=== PATIENT | female | born 1930 | race Asian ===

== ENCOUNTER 2017-11-22 20:59 | Inpatient (IN) | payer MEDICARE, OTHER ==
[~2017-11-22] VITALS: Ht 144.8 cm; Wt 49.9 kg
[~2017-11-22 20:59] MED LIST: ALLOPURINOL100 M1 ORAL; AMLODIPINE BESY10 MG ORAL; ATENOLOL50 MG ORAL; LIPITOR10 MG ORAL; RENVELA800 MG ORAL
[2017-11-22 21:12] VITALS: BP 151/70
[2017-11-22] MEDS ORDERED: Albuterol ud Inhalation HHN ONE (21:30)
[2017-11-22] MEDS ORDERED: Ipratropium 0.02% Inh Soln 2.5ml UD HHN ONE (21:30)
[2017-11-22 21:47] LABS: BASOPHILS % (AUTO) 2.9 % (0.0-2.0); HEMATOCRIT 37.7 % (37.0-47.0); HEMOGLOBIN 11.5 G/DL (12.0-16.0); LYMPHOCYTES % (AUTO) 25.4 % (20.0-45.0); MEAN CORPUSCULAR VOLUME 100 FL (80-99); MONOCYTES % (AUTO) 10.2 % (1.0-10.0); NEUTROPHILS % (AUTO) 60.6 % (45.0-75.0); PLATELET COUNT 279 K/UL (150-450); RED BLOOD COUNT 3.78 M/UL (4.20-5.40); RED CELL DISTRIBUTION WIDTH 13.6 % (11.6-14.8); WHITE BLOOD COUNT 16.1 K/UL (4.8-10.8)
[2017-11-22 21:57] LABS: ANION GAP 14 mmol/L (5-15); BLOOD UREA NITROGEN 72 mg/dL (7-18); CALCIUM 9.4 MG/DL (8.5-10.1); CARBON DIOXIDE 20 MMOL/L (21-32); CHLORIDE 101 MMOL/L (98-107); CREATININE 7.2 MG/DL (0.55-1.30); POTASSIUM 5.4 MMOL/L (3.5-5.1); SODIUM 135 MMOL/L (136-145)
[2017-11-22 22:26] LABS: ALANINE AMINOTRANSFERASE 12 U/L (12-78); ALBUMIN 3.6 G/DL (3.4-5.0); ALBUMIN/GLOBULIN RATIO 0.9 (1.0-2.7); ALKALINE PHOSPHATASE 84 U/L (46-116); ASPARTATE AMINO TRANSFERASE 20 U/L (15-37); BILIRUBIN,TOTAL 0.5 MG/DL (0.2-1.0); CKMB 1.8 NG/ML (0.0-3.6); CREATINE KINASE 36 U/L (26-308)
[2017-11-22] MEDS ORDERED: Enoxaparin 60mg Inj SUBQ ONE (22:30)
[2017-11-22] MEDS: Aspirin Baby 81mg ORAL ONE (22:30)
[2017-11-22 22:36] LABS: APPEARANCE,URINE CLEAR; BILIRUBIN, URINE NEGATIVE (NEGATIVE); COLOR,URINE PALE YELLOW; GLUCOSE, URINE (UA) 2+ (NEGATIVE); KETONES,URINE NEGATIVE (NEGATIVE); LEUKOCYTE ESTERASE ,URINE NEGATIVE (NEGATIVE); NITRITE,URINE NEGATIVE (NEGATIVE); PH,URINE 7 (4.5-8.0); PROTEIN,URINE 3+ (NEGATIVE); UROBILINOGEN,URINE NORMAL MG/DL (0.0-1.0)
--- NOTE | 2017-11-22 22:48 | Emergency Room Report ---
History of Present Illness General Chief Complaint: Dyspnea/Respdistress Source: Patient, Family Member Present Illness HPI This is an 87-year-old [place] female with a history of CAD status post pacemaker. She also has end-stage renal disease on dialysis. Her dialysis days are Tuesday, Tuesday and Tuesday. She had early dialysis on Tuesday because Tuesday was New Year's Day. Patient presents with chief complaint of shortness of breath. Onset last night. No fever or chills. Hard time breathing. Unable to lay flat. Has chest pressure and dyspnea on exertion. Her son brought her here by car. Allergies: Coded Allergies: JUDAH INHIBITORS (Verified Allergy, Mild, 10/06/10) Patient History Past Medical History: see triage record, old chart reviewed, DM, HTN, CAD, renal disease, dialysis Past Surgical History: pacemaker, other Pertinent Family History: none Social History: Denies: smoking Now: No Immunizations: other Reviewed Nursing Documentation: PMH: Agreed, PSxH: Agreed Nursing Documentation-PMH Hx Cardiac Problems: Yes Hx Hypertension: Yes Hx Pacemaker: Yes - LRFT Hx COPD: Yes Hx Diabetes: Yes - Tue,Tue,Tue. Dyalisis Hx Cancer: No Hx Gastrointestinal Problems: Yes Hx Dialysis: Yes Hx Neurological Problems: No Review of Systems Eye: Denies: eye pain, blurred vision ENT: Denies: ear pain, nose congestion, throat swelling Respiratory: Reports: cough, shortness of breath, PATTON Cardiovascular: Denies: chest pain, palpitations Gastrointestinal: Denies: abdominal pain, diarrhea, nausea, vomiting Musculoskeletal: Denies: back pain, joint pain Skin: Denies: rash Neurological: Denies: headache, numbness Endocrine: Denies: increased thirst, increased urine Hematologic/Lymphatic: Denies: easy bruising All Other Systems: negative except mentioned in HPI Physical Exam Vital Signs Date Time Temp Pulse Resp B/P (MAP) Pulse Ox O2 Delivery O2 Flow Rate FiO2 11/22/17 21:07 97.2 84 20 151/70 64 Room Air 11/22/17 21:40 100 vitals with hypoxia. Pulse ox is 84% on room air Sp02 EP Interpretation: reviewed, normal General Appearance: alert, moderate distress, thin, Postictal Head: normocephalic, atraumatic Eyes: bilateral eye PERRL, bilateral eye EOMI ENT: hearing grossly normal, normal pharynx Neck: full range of motion, supple, no meningismus, other - JVD Respiratory: chest non-tender, respiratory distress, decreased breath sounds, accessory muscle use, rales Cardiovascular #1: regular rate, rhythm, no murmur Gastrointestinal: normal bowel sounds, non tender, no mass, no organomegaly, no bruit, non-distended Musculoskeletal: back normal, normal range of motion Neurologic: alert Psychiatric: mood/affect normal Skin: warm/dry Procedures Critical Care Time Critical Care Time Critical care is mandated in this patient who presented with respiratory distress from pulmonary edema. Patient require my urgent intervention to attenuate the risks of metabolic collapse which may lead to cardiovascular collapse and . Critical care time is 35 minutes excluding any reportable procedure. Critical care time included evaluation, multiple reevaluation, looking at old charts, interpreting laboratory and diagnostic data, discussing case with patient and family and consultants, and charting. Medical Decision Making Diagnostic Impression: Primary Impression: Acute respiratory failure with hypoxia Additional Impressions: NSTEMI (non-ST elevated myocardial infarction) Pulmonary edema Qualified Codes: J81.0 - Acute pulmonary edema Hyperkalemia Anemia Qualified Codes: D64.9 - Anemia, unspecified Hyperglycemia due to type 2 diabetes mellitus Qualified Codes: E11.65 - Type 2 diabetes mellitus with hyperglycemia ER Course Patient presents with rest or distress secondary to only edema. Patient is on BiPAP and given Lasix. She is much more comfortable respiratory sargent. She does have an NSTEMI. Aspirin was not given because of her allergy. Lovenox given. Elevated troponin may be secondary to demand ischemia. No evidence of pneumonia, PE, dissection to name a few. We'll admit. Her son said that she is taking aspirin at home. Will give her a dose of aspirin. I discussed case with Dr. Chand who will admit. Asked me to contact Dr. Duron. Laboratory Tests Test 11/22/17 21:35 11/22/17 21:43 White Blood Count 16.1 K/UL (4.8-10.8) H Red Blood Count 3.78 M/UL (4.20-5.40) L Hemoglobin 11.5 G/DL (12.0-16.0) L Hematocrit 37.7 % (37.0-47.0) Mean Corpuscular Volume 100 FL (80-99) H Mean Corpuscular Hemoglobin 30.5 PG (27.0-31.0) Mean Corpuscular Hemoglobin Concent 30.5 G/DL (32.0-36.0) L Red Cell Distribution Width 13.6 % (11.6-14.8) Platelet Count 279 K/UL (150-450) Mean Platelet Volume 5.9 FL (6.5-10.1) L Neutrophils (%) (Auto) 60.6 % (45.0-75.0) Lymphocytes (%) (Auto) 25.4 % (20.0-45.0) Monocytes (%) (Auto) 10.2 % (1.0-10.0) H Eosinophils (%) (Auto) 1.0 % (0.0-3.0) Basophils (%) (Auto) 2.9 % (0.0-2.0) H Prothrombin Time 9.8 SEC (9.30-11.50) Prothromb Time International Ratio 1.0 (0.9-1.1) Activated Partial Thromboplast Time 25 SEC (23-33) Sodium Level 135 MMOL/L (136-145) L Potassium Level 5.4 MMOL/L (3.5-5.1) H Chloride Level 101 MMOL/L (98-107) Carbon Dioxide Level 20 MMOL/L (21-32) L Anion Gap 14 mmol/L (5-15) Blood Urea Nitrogen 72 mg/dL (7-18) H Creatinine 7.2 MG/DL (0.55-1.30) H Estimat Glomerular Filtration Rate mL/min (>60) Glucose Level 246 MG/DL (74-106) H Calcium Level 9.4 MG/DL (8.5-10.1) Total Bilirubin 0.5 MG/DL (0.2-1.0) Aspartate Amino Transf (AST/SGOT) 20 U/L (15-37) Alanine Aminotransferase (ALT/SGPT) 12 U/L (12-78) Alkaline Phosphatase 84 U/L (46-116) Total Creatine Kinase 36 U/L (26-308) Creatine Kinase MB 1.8 NG/ML (0.0-3.6) Creatine Kinase MB Relative Index 5.0 Troponin I 1.005 ng/mL (0.000-0.056) Pro-B-Type Natriuretic Peptide 65098 pg/mL (0-125) H Total Protein 7.6 G/DL (6.4-8.2) Albumin 3.6 G/DL (3.4-5.0) Globulin 4.0 g/dL Albumin/Globulin Ratio 0.9 (1.0-2.7) L Urine Color Pending Urine Appearance Pending Urine pH Pending Urine Specific [place] Pending Urine Protein Pending Urine Glucose (UA) Pending Urine Ketones Pending Urine Occult Blood Pending Urine Nitrite Pending Urine Bilirubin Pending Urine Urobilinogen Pending Urine Leukocyte Esterase Pending Lab Results Impression labs with elevated BNP and troponin. EKG Diagnostic Results Rate: normal Rhythm: NSR ST Segments: other - paced. ST depression laterally Rhythm Strip Diag. Results Rhythm Strip Time: 22:47 EP Interpretation: yes Rate: 60 Rhythm: NSR, no PVC's, no ectopy Chest X-Ray Diagnostic Results Chest X-Ray Diagnostic Results : Chest X-Ray Ordered: Yes # of Views/Limited/Complete: 1 View Indication: Shortness of Breath EP Interpretation: Yes Interpretation: no consolidation, no pneumothorax, other - CM with pulm edema Impression: Other - Pulm edema Electronically Signed by: Ronny Lyn MD Last Vital Signs Date Time Temp Pulse Resp B/P (MAP) Pulse Ox O2 Delivery O2 Flow Rate FiO2 11/22/17 21:56 60 19 100 Bi-pap 100 11/22/17 21:12 97.2 151/70 Status: improved Disposition: ADMITTED INPATIENT Condition: Critical Referrals: TISH MOREAU M.D. (REFERMD) (PCP) RONNY LYN M.D. Nov 22, 2017 22:48
[2017-11-22 23:12] VITALS: BP 130/74
[2017-11-23] VITALS (13 sets, daily range): BP systolic 114–150; BP diastolic 47–65
[2017-11-23] MEDS: Aspirin Baby 81mg ORAL ONE (01:13)
[2017-11-23] MEDS ORDERED: SIMVASTATIN5 MG ORAL (01:25)
[2017-11-23] MEDS ORDERED: METOPROLOL TA37.5 MG PO (01:25)
[2017-11-23] MEDS ORDERED: ASPIRIN81 MG ORAL (01:25)
--- NOTE | 2017-11-23 07:41 | History & Physical ---
History and Physical History & Physicial REASON FOR ADMISSION: SOB HISTORY OF PRESENT ILLNESS: The patient is an 87-year-old female, presented after having some increased SOB x 1 day. She had no chest pain, nausea, vomiting, or diarrhea. She had dialysis 11/20/17. She is a dialysis patient on MWF. She has had no fever or recent ill contacts. She was evaluated and troponin was high. She improved on BiPAP. Aspirin and Lovenox were given. PAST MEDICAL HISTORY: Renal failure, on dialysis with Dr. Frye, hypercholesterolemia, hypertension, and diabetes, CAD, pacer. PAST SURGICAL HISTORY: Includes dialysis access including AV fistula and vascular stent in the right innominate vein, pacer. MEDICATIONS: Pre-Hospital Medications have been reviewed and reconciled. SOCIAL HISTORY: Negative for tobacco, alcohol, or drugs. FAMILY HISTORY: Noncontributory. PHYSICAL EXAMINATION: GENERAL: She is alert and she is oriented. VITAL SIGNS: She is afebrile, pulse is 60, blood pressure 130/52, and O2 saturation is 100% on BiPAP at 60% O2. RA sat was <70%. HEENT: Oropharynx is moist. Nasal mucosa moist. NECK: Supple. No lymphadenopathy. LUNGS: Decreased at the bases. Few rales. HEART: Regular rate and rhythm without murmur. ABDOMEN: Soft, obese, and nontender. EXTREMITIES: No edema. LABORATORY AND DIAGNOSTIC DATA: reviewed ASSESSMENT AND PLAN: AMI,renal failure on dialysis, diabetes, hypertension, and hypercholesterolemia. PLAN: admit cardiology, renal called HD BiPAP RIVER CAICEDO Nov 23, 2017 07:41
[2017-11-23] MEDS ORDERED: Aspirin Baby 81mg ORAL SCH (09:00)
[2017-11-23] MEDS: Allopurinol 100mg Tab ORAL SCH (10:39)
--- NOTE | 2017-11-23 12:07 | Diagnostic Imaging Report ---
Indication: Shortness of breath Technique: One view of the chest Comparison: 08/12/2016 Findings: Infiltrates versus edema are seen in the right middle lower lung, retrocardiac region. There are probably small bilateral pleural effusions left chest pacemaker is again. The heart size is upper limits of normal. The aorta is tortuous and calcified. Right innominate venous stent is again demonstrated Impression: Right mid and lower lung and left retrocardiac infiltrates versus edema Suspect small bilateral pleural effusions Other findings as noted
--- NOTE | 2017-11-23 17:54 | Consultation ---
Consult Note Consult Note asked to evaluate at the request of Dr Chand for dialysis management Dyspnea/Respdistress This is an 87-year-old [place] female with a history of CAD status post pacemaker. She also has end-stage renal disease on dialysis. Her dialysis days are Tuesday, Tuesday and Tuesday. She had early dialysis on Tuesday because Tuesday was New Year's Day. Patient presents with chief complaint of shortness of breath. Onset last night. No fever or chills. Hard time breathing. Unable to lay flat. Has chest pressure and dyspnea on exertion. Her son brought her here by car. Coded Allergies: JUDAH INHIBITORS (Verified Allergy, Mild, 10/06/10) Past Medical History: see triage record, old chart reviewed, DM, HTN, CAD, renal disease, dialysis Past Surgical History: pacemaker, other Hx Cardiac Problems: Yes Hx Hypertension: Yes Hx Pacemaker: Yes - LRFT Hx COPD: Yes Hx Diabetes: Yes - Tue,Tue,Tue. Dyalisis Hx Gastrointestinal Problems: Yes Hx Dialysis: Yes seen in ER in room 3 on BIPAP examined data reviewed Assessment/Plan Respiratory distress likely volume over load ? underlying pneumonia ESRD presents with CHF and high K Elevated Troponin I Anemia Other : s/p L2 compression fracture- left-sided, left leg lower extremity weakness, ESRD on Dialysis, PACER diabetes, hypertension, hypercholesterolemia. Plan; HD patricia ordered with UF pulmonary support optimize cardiac status antibiotics ALBER CHASE Nov 23, 2017 17:54
[2017-11-23] MEDS: Metoprolol Tartrate 12.5mg TAB ORAL SCH (20:49)
[2017-11-24] VITALS (8 sets, daily range): BP systolic 89–140; BP diastolic 40–56
[2017-11-24 06:28] LABS: BASOPHILS % (AUTO) 2.4 % (0.0-2.0); EOSINOPHILS % (AUTO) 1.7 % (0.0-3.0); HEMATOCRIT 31.9 % (37.0-47.0); HEMOGLOBIN 10.7 G/DL (12.0-16.0); LYMPHOCYTES % (AUTO) 15.3 % (20.0-45.0); MEAN CORPUSCULAR VOLUME 98 FL (80-99); NEUTROPHILS % (AUTO) 64.6 % (45.0-75.0); PLATELET COUNT 269 K/UL (150-450); RED BLOOD COUNT 3.26 M/UL (4.20-5.40); RED CELL DISTRIBUTION WIDTH 13.1 % (11.6-14.8); WHITE BLOOD COUNT 7.8 K/UL (4.8-10.8)
[2017-11-24 06:47] LABS: CREATINE KINASE 36 U/L (26-308); GAMMA GLUTAMYL TRANSPEPTIDASE 8 U/L (5-85); PHOSPHORUS 6.2 MG/DL (2.5-4.9)
[2017-11-24 06:57] LABS: ALANINE AMINOTRANSFERASE 9 U/L (12-78); ALBUMIN/GLOBULIN RATIO 0.8 (1.0-2.7); ALKALINE PHOSPHATASE 63 U/L (46-116); ANION GAP 11 mmol/L (5-15); ASPARTATE AMINO TRANSFERASE 18 U/L (15-37); BILIRUBIN,TOTAL 0.5 MG/DL (0.2-1.0); BLOOD UREA NITROGEN 93 mg/dL (7-18); CALCIUM 9.1 MG/DL (8.5-10.1); CARBON DIOXIDE 23 MMOL/L (21-32); CHLORIDE 101 MMOL/L (98-107); CHOLESTEROL 122 MG/DL (< 200); CREATININE 9.1 MG/DL (0.55-1.30); FERRITIN 663 NG/ML (8-388); HDL CHOLESTEROL 38 MG/DL (40-60); SODIUM 136 MMOL/L (136-145); TRIGLYCERIDES 132 MG/DL (30-150)
[2017-11-24 07:06] LABS: POTASSIUM 6.3 MMOL/L (3.5-5.1)
[2017-11-24 07:17] LABS: % IRON SATURATION 10 % (15-50); IRON 19 ug/dL (50-175); TOTAL IRON BINDING CAPACITY 200 ug/dL (250-450)
[2017-11-24] MEDS: Allopurinol 100mg Tab ORAL SCH (09:43)
[2017-11-24] MEDS: Metoprolol Tartrate 12.5mg TAB ORAL SCH ×2 (09:44→20:32)
--- NOTE | 2017-11-24 09:45 | Consultation ---
DATE OF CONSULTATION: 11/23/2017 CARDIOLOGY CONSULTATION CONSULTING PHYSICIAN: Heraclio Duron M.D. REQUESTING PHYSICIAN: Moy Chand M.D. REASON FOR CONSULTATION: Acute myocardial infarction. HISTORY OF PRESENT ILLNESS: This is an 87-year-old female, who is with end-stage renal disease, presented to the emergency room with one day of progressive shortness of breath, but no associated chest pain, nausea, vomiting, or cough. Her last dialysis session was two days ago, that was on 11/20/2017 for her usual schedule. The patient was seen in the emergency room and started on BiPAP support. She was started on anti-platelet therapy. Concern was raised over an elevated troponin level and I have been asked to assist with further care. PAST MEDICAL HISTORY: Hypertensive heart disease, hyperlipidemia, type 2 diabetes mellitus, coronary artery disease, permanent pacemaker, end-stage renal disease, and right innominate vein vascular stent. MEDICATIONS: Prior to admission, reviewed and reconciled. ALLERGIES: Include angiotensin-converting enzyme inhibitor. SOCIAL HISTORY: Negative for smoking, alcohol, or substance abuse. REVIEW OF SYSTEMS: Cannot be reliably obtained from the patient at this time due to her significant shortness of breath and due to her BiPAP mask. PHYSICAL EXAMINATION: GENERAL: Awake and alert. VITAL SIGNS: Blood pressure 130/50, pulse 60, respirations 28, and afebrile. HEENT: Conjunctivae are pink. Oropharynx clear. NECK: Supple with accessory muscle use. LUNGS: With diminished breath sounds and bilateral rales. CARDIAC: Regular rhythm and rate. Normal S1, S2. There is a fourth heart sound. No murmur. Pacemaker pocket site clean and dry. EXTREMITIES: With no edema. Palpable bruit over AV fistula. DIAGNOSTIC DATA: The chest x-ray reveals right mid and lower lobe and left retrocardiac infiltrates, small pleural effusions, pulmonary venous congestion. EKG revealed AV paced rhythm. LABORATORY DATA: White count 16 and hemoglobin 11. Troponin one is 1, troponin two is 3, and troponin three is 4.1. BUN 73, creatinine 7.2, and potassium 5.4. Pro-natriuretic peptide 26,500. IMPRESSION: 1. Condition critical. 2. Prognosis guarded. 3. Acute respiratory distress with hypoxia. 4. Community-acquired pneumonia. 5. Acute myocardial infarction. 6. Acute on chronic diastolic congestive heart failure. 7. Anemia of chronic kidney disease. 8. Hyperkalemia. 9. Type 2 diabetes mellitus with complications. 10. Permanent pacemaker. PLAN: 1. BiPAP support. 2. Cardiac monitoring. 3. Serial troponins. 4. Hemodialysis with ultrafiltration for volume management. 5. Antimicrobials. 6. Respiratory hygiene. 7. Advance anti-failure regimen. 8. Continue anti-platelet therapy with aspirin and statin drugs for lipid management. 9. Maintain beta-blockade. Heraclio Duron M.D. DR: DUNG JOB#: [id number] CC:
--- NOTE | 2017-11-24 12:46 | Nephrology Progress Note ---
Assessment/Plan Problem List: (1) Acute respiratory failure with hypoxia (2) Renal failure Assessment: on HD Assessment Respiratory distress likely volume over load ? underlying pneumonia ESRD presents with CHF and high K Elevated Troponin I Anemia Other : s/p L2 compression fracture- left-sided, left leg lower extremity weakness, ESRD on Dialysis, PACER diabetes, hypertension, hypercholesterolemia. Plan Plan; HD patricia ordered with UF - ORDERED 11/23/17 8.30 AM, WAS NOT DONE PATIENT TRANSFERED TO [facility] 11 PM - DIALYSIS IS BEING DONE NOW ! pulmonary support optimize cardiac status antibiotics Per orders Subjective ROS Limited/Unobtainable: No Constitutional: Reports: other - SOB on BIPAP Objective Objective Last 24 Hour Vital Signs Date Time Temp Pulse Resp B/P (MAP) Pulse Ox O2 Delivery O2 Flow Rate FiO2 11/24/17 12:00 3.0 11/24/17 09:44 134/56 11/24/17 09:44 60 134/56 11/24/17 09:43 60 134/56 11/24/17 08:00 3.0 11/24/17 08:00 60 11/24/17 08:00 97.0 60 18 134/56 92 Nasal Cannula 4.0 11/24/17 07:26 60 18 92 11/24/17 05:14 68 16 95 Facial 60 11/24/17 04:00 60 11/24/17 04:00 97.6 60 22 128/51 97 Bi-pap 60 11/24/17 04:00 60 11/24/17 02:41 62 21 96 Facial 60 11/24/17 00:33 66 20 96 Facial 60 11/24/17 00:00 60 11/24/17 00:00 97.2 60 22 118/54 97 Bi-pap 60 11/24/17 00:00 60 11/23/17 22:56 73 16 95 Facial 60 11/23/17 21:04 69 23 96 Facial 60 11/23/17 21:00 60 11/23/17 20:50 137/58 11/23/17 20:49 68 137/58 11/23/17 20:00 60 11/23/17 20:00 3.0 11/23/17 20:00 97.2 60 22 127/51 90 Nasal Cannula 3.0 11/23/17 18:35 68 18 93 11/23/17 17:08 63 22 97 Facial 60 11/23/17 16:37 60 11/23/17 16:30 60 11/23/17 16:15 97.0 60 22 137/58 100 Bi-pap 60 11/23/17 15:48 60 19 120/84 100 Room Air 11/23/17 14:45 60 24 99 Facial 60 11/23/17 14:00 98.2 60 16 131/50 99 Bi-pap 60 11/23/17 13:00 98.4 60 17 135/54 98 60 Intake and Output 11/23/17 11/24/17 19:00 07:00 Intake Total 120 ml 100 ml Output Total 100 ml 200 ml Balance 20 ml -100 ml Intake Oral 120 ml 100 ml Output Urine Total 100 ml 200 ml Laboratory Tests 11/23/17 13:30: Troponin I 4.099H 11/24/17 04:00: Troponin I 4.114H, White Blood Count 7.8#, Red Blood Count 3.26L, Hemoglobin 10.7L, Hematocrit 31.9L, Mean Corpuscular Volume 98, Mean Corpuscular Hemoglobin 32.7H, Mean Corpuscular Hemoglobin Concent 33.4, Red Cell Distribution Width 13.1, Platelet Count 269, Mean Platelet Volume 6.2L, Neutrophils (%) (Auto) 64.6, Lymphocytes (%) (Auto) 15.3L, Monocytes (%) (Auto) 16.0H, Eosinophils (%) (Auto) 1.7, Basophils (%) (Auto) 2.4H, Sodium Level 136, Potassium Level 6.3*H, Chloride Level 101, Carbon Dioxide Level 23, Anion Gap 11 , Blood Urea Nitrogen 93H, Creatinine 9.1H, Estimat Glomerular Filtration Rate , Glucose Level 86#, Hemoglobin A1c 5.8, Uric Acid 5.0, Calcium Level 9.1, Phosphorus Level 6.2H, Magnesium Level 2.5H, Iron Level 19L, Total Iron Binding Capacity 200L, Percent Iron Saturation 10L, Unsaturated Iron Binding 181, Ferritin 663H, Total Bilirubin 0.5, Gamma Glutamyl Transpeptidase 8, Aspartate Amino Transf (AST/SGOT) 18, Alanine Aminotransferase (ALT/SGPT) 9L, Alkaline Phosphatase 63, Total Creatine Kinase 36, C-Reactive Protein, Quantitative 4.8H , Pro-B-Type Natriuretic Peptide > 33045H, Total Protein 6.7, Albumin 3.0L, Globulin 3.7, Albumin/Globulin Ratio 0.8L, Triglycerides Level 132, Cholesterol Level 122, LDL Cholesterol 71, HDL Cholesterol 38L, Cholesterol/HDL Ratio 3.2L, Vitamin B12 Level 384, Folate 16.8, Thyroid Stimulating Hormone (TSH) 1.341 Height (Feet): 4 Height (Inches): 9.00 Weight (Pounds): 110 General Appearance: mild distress Cardiovascular: normal rate Respiratory/Chest: decreased breath sounds, rhonchi - bilaterally Abdomen: distended ALBER CHASE Nov 24, 2017 12:46
--- NOTE | 2017-11-24 20:17 | Pulmonology Progress Note ---
Assessment/Plan Assessment/Plan AMI renal failure on dialysis diabetes, hypertension hypercholesterolemia looks MUCH better after HD off BiPAP not SOB wants to go home K high repeat testing tomorrow early dc when ok with consultants Subjective Constitutional: Reports: no symptoms Allergies: Coded Allergies: JUDAH INHIBITORS (Verified Allergy, Mild, 10/06/10) Objective Last 24 Hour Vital Signs Date Time Temp Pulse Resp B/P (MAP) Pulse Ox O2 Delivery O2 Flow Rate FiO2 11/24/17 17:44 138/53 11/24/17 17:44 61 138/53 11/24/17 16:00 4.0 11/24/17 16:00 61 11/24/17 16:00 97.7 61 18 138/53 Nasal Cannula 4.0 11/24/17 14:27 Nasal Cannula 5.0 60 11/24/17 14:20 Nasal Cannula 5.0 11/24/17 14:20 97.7 60 20 140/40 Nasal Cannula 5.0 11/24/17 12:00 3.0 11/24/17 12:00 97.9 60 18 89/42 Nasal Cannula 5.0 11/24/17 12:00 60 11/24/17 11:00 Nasal Cannula 5.0 11/24/17 11:00 97.5 60 20 123/54 Nasal Cannula 5.0 11/24/17 09:44 134/56 11/24/17 09:44 60 134/56 11/24/17 09:43 60 134/56 11/24/17 08:00 3.0 11/24/17 08:00 60 11/24/17 08:00 97.0 60 18 134/56 92 Nasal Cannula 4.0 11/24/17 07:26 60 18 92 11/24/17 05:14 68 16 95 Facial 60 11/24/17 04:00 60 11/24/17 04:00 97.6 60 22 128/51 97 Bi-pap 60 11/24/17 04:00 60 11/24/17 02:41 62 21 96 Facial 60 11/24/17 00:33 66 20 96 Facial 60 11/24/17 00:00 60 11/24/17 00:00 97.2 60 22 118/54 97 Bi-pap 60 11/24/17 00:00 60 11/23/17 22:56 73 16 95 Facial 60 11/23/17 21:04 69 23 96 Facial 60 11/23/17 21:00 60 11/23/17 20:50 137/58 11/23/17 20:49 68 137/58 Intake and Output 11/23/17 11/24/17 19:00 07:00 Intake Total 120 ml 100 ml Output Total 100 ml 200 ml Balance 20 ml -100 ml Intake Oral 120 ml 100 ml Output Urine Total 100 ml 200 ml General Appearance: no acute distress HEENT: anicteric Respiratory/Chest: lungs clear Cardiovascular: normal rate Laboratory Tests 11/24/17 04:00: White Blood Count 7.8#, Red Blood Count 3.26L, Hemoglobin 10.7L, Hematocrit 31.9L, Mean Corpuscular Volume 98, Mean Corpuscular Hemoglobin 32.7H, Mean Corpuscular Hemoglobin Concent 33.4, Red Cell Distribution Width 13.1, Platelet Count 269, Mean Platelet Volume 6.2L, Neutrophils (%) (Auto) 64.6, Lymphocytes ( %) (Auto) 15.3L, Monocytes (%) (Auto) 16.0H, Eosinophils (%) (Auto) 1.7, Basophils (%) (Auto) 2.4H, Sodium Level 136, Potassium Level 6.3*H, Chloride Level 101, Carbon Dioxide Level 23, Anion Gap 11, Blood Urea Nitrogen 93H, Creatinine 9.1H, Estimat Glomerular Filtration Rate , Glucose Level 86#, Hemoglobin A1c 5.8, Uric Acid 5.0, Calcium Level 9.1, Phosphorus Level 6.2H, Magnesium Level 2.5H, Iron Level 19L, Total Iron Binding Capacity 200L, Percent Iron Saturation 10L, Unsaturated Iron Binding 181, Ferritin 663H, Total Bilirubin 0.5, Gamma Glutamyl Transpeptidase 8, Aspartate Amino Transf (AST/SGOT ) 18, Alanine Aminotransferase (ALT/SGPT) 9L, Alkaline Phosphatase 63, Total Creatine Kinase 36, Troponin I 4.114H, C-Reactive Protein, Quantitative 4.8H, Pro-B-Type Natriuretic Peptide > 73861Q, Total Protein 6.7, Albumin 3.0L, Globulin 3.7, Albumin/Globulin Ratio 0.8L, Triglycerides Level 132, Cholesterol Level 122, LDL Cholesterol 71, HDL Cholesterol 38L, Cholesterol/HDL Ratio 3.2L, Vitamin B12 Level 384, Folate 16.8, Thyroid Stimulating Hormone (TSH) 1.341 Current Medications Medications (Trade) Dose Ordered Sig/Hanna Route PRN Reason Start Time Stop Time Status Last Admin Dose Admin Allopurinol (Zyloprim) 100 mg DAILY ORAL 11/23/17 09:00 12/23/17 08:59 11/24/17 09:43 Amlodipine Besylate (Norvasc) 2.5 mg BID ORAL 11/24/17 09:00 12/23/17 08:59 11/24/17 17:44 Aspirin (ASA) 325 mg DAILY ORAL 11/24/17 09:00 12/24/17 08:59 11/24/17 09:43 Atorvastatin Calcium (Lipitor) 10 mg BEDTIME ORAL 11/23/17 21:00 12/23/17 20:59 11/23/17 20:49 Isosorbide Dinitrate (Isordil) 20 mg TID ORAL 11/24/17 09:00 12/23/17 20:59 11/24/17 17:44 Metoprolol Tartrate (Lopressor) 12.5 mg Q12HR ORAL 11/23/17 21:00 12/23/17 20:59 11/24/17 09:44 Pantoprazole (Protonix) 40 mg DAILY ORAL 11/23/17 20:00 12/23/17 19:59 11/24/17 09:44 Sevelamer Carbonate (Renvela) 1,600 mg THREE TIMES A DAY ORAL 11/24/17 13:45 12/24/17 13:44 11/24/17 17:44 RIVER CAICEDO Nov 24, 2017 20:17
[2017-11-25] VITALS: BP 112/52
--- NOTE | 2017-11-25 00:15 | Progress Note ---
DATE: 11/24/2017 CARDIOLOGY PROGRESS NOTE SUBJECTIVE: The patient is status post hemodialysis with ultrafiltration. She has had a good ultrafiltration today and has no chest pain or shortness of breath. OBJECTIVE: VITAL SIGNS: Blood pressure 138/53, pulse 61, and respiratory rate 18. NECK: Supple. Jugular venous pressure is slightly elevated. CARDIAC: Regular rhythm and rate. Normal S1 and S2 with a fourth heart sound. ABDOMEN: Soft. EXTREMITIES: There is no edema. LABORATORY AND DIAGNOSTIC DATA: White count 7.8 and hemoglobin 10.7. Potassium 6.3. Troponin is 4.1. Phosphorus is 6.2. TSH 1.3. LDL is 71. IMPRESSION: 1. Acute myocardial infarction. 2. Hyperphosphatemia. 3. Mild protein-calorie malnutrition. 4. End-stage renal disease with hyperkalemia. 5. Acute on chronic diastolic congestive heart failure, clinically improved. PLAN: Phosphate binders. Continue anti-lipid therapy and aspirin. Low-dose beta-pamela as limited by heart rate. Long-acting nitrates. Medical management in this age group and clinical setting. Heraclio Duron M.D. DR: WALTER JOB#: [id number] CC:
[2017-11-25 04:00] VITALS: BP 129/50
[2017-11-25 05:04] LABS: HEMOGLOBIN 9.9 G/DL (12.0-16.0); MEAN CORPUSCULAR VOLUME 98 FL (80-99); PLATELET COUNT 229 K/UL (150-450); RED BLOOD COUNT 3.07 M/UL (4.20-5.40); RED CELL DISTRIBUTION WIDTH 13.4 % (11.6-14.8); WHITE BLOOD COUNT 6.5 K/UL (4.8-10.8)
[2017-11-25 05:51] LABS: ALANINE AMINOTRANSFERASE 9 U/L (12-78); ALBUMIN 2.7 G/DL (3.4-5.0); ALBUMIN/GLOBULIN RATIO 0.8 (1.0-2.7); ALKALINE PHOSPHATASE 55 U/L (46-116); ANION GAP 4 mmol/L (5-15); ASPARTATE AMINO TRANSFERASE 20 U/L (15-37); BILIRUBIN,TOTAL 0.7 MG/DL (0.2-1.0); BLOOD UREA NITROGEN 42 mg/dL (7-18); CALCIUM 8.3 MG/DL (8.5-10.1); CARBON DIOXIDE 35 MMOL/L (21-32); CHLORIDE 102 MMOL/L (98-107); CREATININE 5.7 MG/DL (0.55-1.30); PHOSPHORUS 3.7 MG/DL (2.5-4.9); POTASSIUM 4.1 MMOL/L (3.5-5.1); SODIUM 141 MMOL/L (136-145)
[2017-11-25 08:00] VITALS: BP 136/53
[2017-11-25] MEDS: Metoprolol Tartrate 12.5mg TAB ORAL SCH ×2 (09:07→20:18)
[2017-11-25] MEDS: Allopurinol 100mg Tab ORAL SCH (09:07)
[2017-11-25 12:00] VITALS: BP 121/46
--- NOTE | 2017-11-25 13:48 | Nephrology Progress Note ---
Assessment/Plan Problem List: (1) Acute respiratory failure with hypoxia (2) Renal failure Assessment: on HD Assessment Respiratory distress likely volume over load resolved post HD ? underlying pneumonia ESRD presents with CHF and high K resolved Elevated Troponin I Anemia Other : s/p L2 compression fracture- left-sided, left leg lower extremity weakness, ESRD on Dialysis, PACER diabetes, hypertension, hypercholesterolemia. Plan Plan; dialysed 11/24 next HD 11/26 pulmonary support optimize cardiac status antibiotics Per orders PT OT Subjective ROS Limited/Unobtainable: No Constitutional: Reports: malaise, other - off bipap Objective Objective Last 24 Hour Vital Signs Date Time Temp Pulse Resp B/P (MAP) Pulse Ox O2 Delivery O2 Flow Rate FiO2 11/25/17 09:08 136/53 11/25/17 09:08 58 136/53 11/25/17 09:07 58 136/53 11/25/17 08:00 97.9 58 18 136/53 95 Nasal Cannula 4.0 11/25/17 08:00 60 11/25/17 04:00 98.0 60 16 129/50 97 Nasal Cannula 4.0 11/25/17 04:00 4.0 11/25/17 03:45 61 11/25/17 00:00 4.0 11/25/17 00:00 98.1 60 20 112/52 95 Nasal Cannula 4.0 11/24/17 23:38 60 11/24/17 22:45 60 14 Nasal Cannula 5.0 40 11/24/17 20:32 60 128/52 11/24/17 20:12 62 11/24/17 20:00 98.5 60 20 128/52 Nasal Cannula 4.0 11/24/17 20:00 4.0 11/24/17 17:44 138/53 11/24/17 17:44 61 138/53 11/24/17 16:00 4.0 11/24/17 16:00 61 11/24/17 16:00 97.7 61 18 138/53 Nasal Cannula 4.0 11/24/17 14:27 Nasal Cannula 5.0 60 11/24/17 14:20 Nasal Cannula 5.0 11/24/17 14:20 97.7 60 20 140/40 Nasal Cannula 5.0 Intake and Output 11/24/17 11/25/17 19:00 07:00 Intake Total 200 ml Output Total 1662 ml 300 ml Balance -1462 ml -300 ml Intake Oral 200 ml Output Urine Total 200 ml 300 ml Hemodialysis UF 1462 ml Laboratory Tests 11/25/17 03:55: White Blood Count 6.5, Red Blood Count 3.07L, Hemoglobin 9.9L, Hematocrit 30.0L , Mean Corpuscular Volume 98, Mean Corpuscular Hemoglobin 32.3H, Mean Corpuscular Hemoglobin Concent 33.0, Red Cell Distribution Width 13.4, Platelet Count 229, Mean Platelet Volume 5.9L, Neutrophils (%) (Auto) , Lymphocytes (%) ( Auto) , Monocytes (%) (Auto) , Eosinophils (%) (Auto) , Basophils (%) (Auto) , Sodium Level 141, Potassium Level 4.1, Chloride Level 102, Carbon Dioxide Level 35H, Anion Gap 4L, Blood Urea Nitrogen 42H, Creatinine 5.7H, Estimat Glomerular Filtration Rate , Glucose Level 97, Uric Acid 2.6, Calcium Level 8.3L, Phosphorus Level 3.7, Magnesium Level 2.1, Total Bilirubin 0.7, Aspartate Amino Transf (AST/SGOT) 20, Alanine Aminotransferase (ALT/SGPT) 9L, Alkaline Phosphatase 55, Troponin I 3.178H, C-Reactive Protein, Quantitative 4.3H, Pro-B- Type Natriuretic Peptide > 83125K, Total Protein 6.2L, Albumin 2.7L, Globulin 3.5, Albumin/Globulin Ratio 0.8L Height (Feet): 4 Height (Inches): 9.00 Weight (Pounds): 110 General Appearance: no apparent distress Cardiovascular: bradycardia Respiratory/Chest: decreased breath sounds Abdomen: soft ALBER CHASE Nov 25, 2017 13:48
--- NOTE | 2017-11-25 14:20 | Pulmonology Progress Note ---
Assessment/Plan Assessment/Plan AMI renal failure on dialysis diabetes, hypertension hypercholesterolemia looks better after being dialyzed off BiPAP for now repeat testing tomorrow Subjective Interval Events: seen in [facility]. She states she is feeling better Constitutional: Reports: no symptoms HEENT: Repors: no symptoms Respiratory: Reports: no symptoms Cardiovascular: Reports: no symptoms Gastrointestinal/Abdominal: Reports: no symptoms Allergies: Coded Allergies: JUDAH INHIBITORS (Verified Allergy, Mild, 10/06/10) Objective Last 24 Hour Vital Signs Date Time Temp Pulse Resp B/P (MAP) Pulse Ox O2 Delivery O2 Flow Rate FiO2 11/25/17 09:08 136/53 11/25/17 09:08 58 136/53 11/25/17 09:07 58 136/53 11/25/17 08:00 97.9 58 18 136/53 95 Nasal Cannula 4.0 11/25/17 08:00 60 11/25/17 04:00 98.0 60 16 129/50 97 Nasal Cannula 4.0 11/25/17 04:00 4.0 11/25/17 03:45 61 11/25/17 00:00 4.0 11/25/17 00:00 98.1 60 20 112/52 95 Nasal Cannula 4.0 11/24/17 23:38 60 11/24/17 22:45 60 14 Nasal Cannula 5.0 40 11/24/17 20:32 60 128/52 11/24/17 20:12 62 11/24/17 20:00 98.5 60 20 128/52 Nasal Cannula 4.0 11/24/17 20:00 4.0 11/24/17 17:44 138/53 11/24/17 17:44 61 138/53 11/24/17 16:00 4.0 11/24/17 16:00 61 11/24/17 16:00 97.7 61 18 138/53 Nasal Cannula 4.0 11/24/17 14:27 Nasal Cannula 5.0 60 11/24/17 14:20 Nasal Cannula 5.0 11/24/17 14:20 97.7 60 20 140/40 Nasal Cannula 5.0 Intake and Output 11/24/17 11/25/17 19:00 07:00 Intake Total 200 ml Output Total 1662 ml 300 ml Balance -1462 ml -300 ml Intake Oral 200 ml Output Urine Total 200 ml 300 ml Hemodialysis UF 1462 ml General Appearance: no acute distress HEENT: normocephalic Respiratory/Chest: chest wall non-tender, lungs clear Cardiovascular: normal peripheral pulses, normal rate Abdomen: normal bowel sounds, soft, non tender Microbiology Date/Time Source Procedure Growth Status 11/23/17 05:00 Nasal Nares MRSA Culture - Final NO METHICILLIN RESISTANT STAPH AUREUS... Complete 11/23/17 05:00 Rectum VRE Culture - Final NO VANCOMYCIN RESISTANT ENTEROCOCCUS ... Complete Laboratory Tests 11/25/17 03:55: White Blood Count 6.5, Red Blood Count 3.07L, Hemoglobin 9.9L, Hematocrit 30.0L , Mean Corpuscular Volume 98, Mean Corpuscular Hemoglobin 32.3H, Mean Corpuscular Hemoglobin Concent 33.0, Red Cell Distribution Width 13.4, Platelet Count 229, Mean Platelet Volume 5.9L, Neutrophils (%) (Auto) , Lymphocytes (%) ( Auto) , Monocytes (%) (Auto) , Eosinophils (%) (Auto) , Basophils (%) (Auto) , Sodium Level 141, Potassium Level 4.1, Chloride Level 102, Carbon Dioxide Level 35H, Anion Gap 4L, Blood Urea Nitrogen 42H, Creatinine 5.7H, Estimat Glomerular Filtration Rate , Glucose Level 97, Uric Acid 2.6, Calcium Level 8.3L, Phosphorus Level 3.7, Magnesium Level 2.1, Total Bilirubin 0.7, Aspartate Amino Transf (AST/SGOT) 20, Alanine Aminotransferase (ALT/SGPT) 9L, Alkaline Phosphatase 55, Troponin I 3.178H, C-Reactive Protein, Quantitative 4.3H, Pro-B- Type Natriuretic Peptide > 88939R, Total Protein 6.2L, Albumin 2.7L, Globulin 3.5, Albumin/Globulin Ratio 0.8L Current Medications Medications (Trade) Dose Ordered Sig/Hanna Route PRN Reason Start Time Stop Time Status Last Admin Dose Admin Allopurinol (Zyloprim) 100 mg DAILY ORAL 11/23/17 09:00 12/23/17 08:59 11/25/17 09:07 Amlodipine Besylate (Norvasc) 2.5 mg BID ORAL 11/24/17 09:00 12/23/17 08:59 11/25/17 09:08 Aspirin (ASA) 325 mg DAILY ORAL 11/24/17 09:00 2/3/18 08:59 11/25/17 09:06 Atorvastatin Calcium (Lipitor) 10 mg BEDTIME ORAL 11/23/17 21:00 12/23/17 20:59 11/24/17 20:30 Cyanocobalamin (Vitamin B12) 1,000 mcg DAILY SUBQ 11/25/17 15:00 11/27/17 09:01 Epoetin Feliz (Procrit (for ESRD on dialysis)) 10,000 units TUE-TUE-TUE SUBQ 11/25/17 21:00 12/25/17 20:59 Iron Sucrose 200 mg/Sodium Chloride 120 ml @ 240 mls/hr ONCE ONCE IV 11/25/17 15:30 11/25/17 15:59 Isosorbide Dinitrate (Isordil) 20 mg TID ORAL 11/24/17 09:00 12/23/17 20:59 11/25/17 09:08 Metoprolol Tartrate (Lopressor) 12.5 mg Q12HR ORAL 11/23/17 21:00 12/23/17 20:59 11/25/17 09:07 Pantoprazole (Protonix) 40 mg DAILY ORAL 11/23/17 20:00 12/23/17 19:59 11/25/17 09:06 Sevelamer Carbonate (Renvela) 800 mg THREE TIMES A DAY ORAL 11/25/17 18:00 12/25/17 17:59 Andre Stallworth MD Nov 25, 2017 14:20
[2017-11-25] MEDS ORDERED: Iron Sucrose 200 MG in NS 110 ML IV ONE (15:30)
[2017-11-25 16:00] VITALS: BP 116/43
[2017-11-25] MEDS: Vitamin B12 1000mcg/ml Inj SUBQ SCH (16:07)
[2017-11-25 20:00] VITALS: BP 135/60
[2017-11-25] MEDS: Epogen (for ESRD on dialysis) SUBQ SCH (21:38)
[2017-11-26] VITALS: BP 140/68
[2017-11-26 04:00] VITALS: BP 138/55
[2017-11-26 08:17] VITALS: BP 136/53
[2017-11-26 08:22] LABS: BASOPHILS % (AUTO) 2.9 % (0.0-2.0); EOSINOPHILS % (AUTO) 5.6 % (0.0-3.0); HEMATOCRIT 32.9 % (37.0-47.0); HEMOGLOBIN 10.2 G/DL (12.0-16.0); LYMPHOCYTES % (AUTO) 22.5 % (20.0-45.0); MEAN CORPUSCULAR VOLUME 99 FL (80-99); MONOCYTES % (AUTO) 18.9 % (1.0-10.0); NEUTROPHILS % (AUTO) 50.1 % (45.0-75.0); PLATELET COUNT 234 K/UL (150-450); RED BLOOD COUNT 3.33 M/UL (4.20-5.40); RED CELL DISTRIBUTION WIDTH 13.1 % (11.6-14.8); WHITE BLOOD COUNT 6.7 K/UL (4.8-10.8)
[2017-11-26] MEDS: Metoprolol Tartrate 12.5mg TAB ORAL SCH ×2 (08:33→21:41)
[2017-11-26] MEDS: Vitamin B12 1000mcg/ml Inj SUBQ SCH (08:34)
[2017-11-26] MEDS: Allopurinol 100mg Tab ORAL SCH (08:34)
[2017-11-26 09:22] LABS: ALANINE AMINOTRANSFERASE 12 U/L (12-78); ALBUMIN 2.8 G/DL (3.4-5.0); ALBUMIN/GLOBULIN RATIO 0.8 (1.0-2.7); ALKALINE PHOSPHATASE 59 U/L (46-116); ANION GAP 7 mmol/L (5-15); ASPARTATE AMINO TRANSFERASE 22 U/L (15-37); BILIRUBIN,TOTAL 0.5 MG/DL (0.2-1.0); BLOOD UREA NITROGEN 52 mg/dL (7-18); CALCIUM 8.6 MG/DL (8.5-10.1); CARBON DIOXIDE 32 MMOL/L (21-32); CHLORIDE 100 MMOL/L (98-107); CREATININE 7.6 MG/DL (0.55-1.30); PHOSPHORUS 4.9 MG/DL (2.5-4.9); POTASSIUM 4.6 MMOL/L (3.5-5.1); SODIUM 139 MMOL/L (136-145)
[2017-11-26 12:00] VITALS: BP 122/55
--- NOTE | 2017-11-26 12:36 | Nephrology Progress Note ---
Assessment/Plan Problem List: (1) Acute respiratory failure with hypoxia (2) Renal failure Assessment: on HD Assessment Respiratory distress likely volume over load resolved post HD ? underlying pneumonia ESRD presents with CHF and high K resolved Elevated Troponin I , decreasing Anemia Other : s/p L2 compression fracture- left-sided, left leg lower extremity weakness, ESRD on Dialysis, PACER diabetes, hypertension, hypercholesterolemia. Plan Plan; HD 11/26 pulmonary support optimize cardiac status antibiotics Per orders PT OT Subjective ROS Limited/Unobtainable: No Constitutional: Reports: malaise Objective Objective Last 24 Hour Vital Signs Date Time Temp Pulse Resp B/P (MAP) Pulse Ox O2 Delivery O2 Flow Rate FiO2 11/26/17 12:33 136/53 11/26/17 12:08 Nasal Cannula 4.0 36 11/26/17 08:58 92 Nasal Cannula 4.0 36 11/26/17 08:57 60 18 Nasal Cannula 4.0 36 11/26/17 08:52 60 11/26/17 08:33 136/53 11/26/17 08:33 59 136/53 11/26/17 08:33 59 136/53 11/26/17 08:17 96.8 59 20 136/53 92 Nasal Cannula 4.0 11/26/17 04:05 60 11/26/17 04:00 98.2 60 20 138/55 99 Nasal Cannula 4.0 11/26/17 00:00 98.0 60 20 140/68 99 Nasal Cannula 4.0 11/26/17 00:00 98.0 60 20 140/68 99 Nasal Cannula 4.0 11/25/17 23:45 60 11/25/17 20:18 60 136/60 11/25/17 20:06 60 11/25/17 20:00 98.2 60 20 135/60 96 Nasal Cannula 4.0 11/25/17 18:37 60 116/43 11/25/17 18:00 116/43 11/25/17 16:00 97.6 60 20 116/43 95 Nasal Cannula 4.0 11/25/17 16:00 60 11/25/17 15:52 121/46 Intake and Output 11/25/17 11/26/17 19:00 07:00 Intake Total 480 ml Output Total 200 ml Balance 280 ml Intake Oral 480 ml Output Urine Total 200 ml # Voids 2 # Bowel Movements 4 1 Laboratory Tests 11/26/17 07:09: White Blood Count 6.7, Red Blood Count 3.33L, Hemoglobin 10.2L, Hematocrit 32.9L , Mean Corpuscular Volume 99, Mean Corpuscular Hemoglobin 30.7, Mean Corpuscular Hemoglobin Concent 31.1L, Red Cell Distribution Width 13.1, Platelet Count 234, Mean Platelet Volume 5.9L, Neutrophils (%) (Auto) 50.1, Lymphocytes (%) (Auto) 22.5, Monocytes (%) (Auto) 18.9H, Eosinophils (%) (Auto) 5.6H, Basophils (%) (Auto) 2.9H, Sodium Level 139, Potassium Level 4.6, Chloride Level 100, Carbon Dioxide Level 32, Anion Gap 7, Blood Urea Nitrogen 52H, Creatinine 7.6H, Estimat Glomerular Filtration Rate , Glucose Level 90, Uric Acid 3.6, Calcium Level 8.6, Phosphorus Level 4.9, Magnesium Level 2.1, Total Bilirubin 0.5, Aspartate Amino Transf (AST/SGOT) 22, Alanine Aminotransferase (ALT/SGPT) 12, Alkaline Phosphatase 59, Troponin I 2.935H, Total Protein 6.3L, Albumin 2.8L, Globulin 3.5, Albumin/Globulin Ratio 0.8L Height (Feet): 4 Height (Inches): 9.00 Weight (Pounds): 110 General Appearance: no apparent distress Respiratory/Chest: decreased breath sounds Abdomen: soft ALBER CHASE Nov 26, 2017 12:36
[2017-11-26 16:00] VITALS: BP 107/58
--- NOTE | 2017-11-26 18:57 | Pulmonology Progress Note ---
Assessment/Plan Assessment/Plan AMI renal failure on dialysis diabetes, hypertension hypercholesterolemia hd per renal off BiPAP for now labs reviewed troponin trending down titrate to Ra as tolerated encourage po Subjective Constitutional: Reports: no symptoms Respiratory: Reports: no symptoms Cardiovascular: Reports: no symptoms Gastrointestinal/Abdominal: Reports: no symptoms Genitourinary: Reports: no symptoms Neurologic: Reports: no symptoms Psychiatric: Reports: no symptoms Allergies: Coded Allergies: JUDAH INHIBITORS (Verified Allergy, Mild, 10/06/10) Subjective seen and examined awake minimal po no cp nv or bleeding sp hd no fever Objective Last 24 Hour Vital Signs Date Time Temp Pulse Resp B/P (MAP) Pulse Ox O2 Delivery O2 Flow Rate FiO2 11/26/17 17:57 Nasal Cannula 4.0 36 11/26/17 17:40 107/58 11/26/17 17:39 62 107/58 11/26/17 16:00 99.0 77 23 107/58 94 Nasal Cannula 4.0 11/26/17 16:00 62 11/26/17 12:33 136/53 11/26/17 12:08 Nasal Cannula 4.0 36 11/26/17 12:00 60 11/26/17 12:00 98.1 61 19 122/55 94 Nasal Cannula 4.0 11/26/17 11:40 Nasal Cannula 4.0 36 11/26/17 08:58 92 Nasal Cannula 4.0 36 11/26/17 08:57 60 18 Nasal Cannula 4.0 36 11/26/17 08:52 60 11/26/17 08:33 136/53 11/26/17 08:33 59 136/53 11/26/17 08:33 59 136/53 11/26/17 08:17 96.8 59 20 136/53 92 Nasal Cannula 4.0 11/26/17 04:05 60 11/26/17 04:00 98.2 60 20 138/55 99 Nasal Cannula 4.0 11/26/17 00:00 98.0 60 20 140/68 99 Nasal Cannula 4.0 11/26/17 00:00 98.0 60 20 140/68 99 Nasal Cannula 4.0 11/25/17 23:45 60 11/25/17 20:18 60 136/60 11/25/17 20:06 60 11/25/17 20:00 98.2 60 20 135/60 96 Nasal Cannula 4.0 Intake and Output 11/25/17 11/26/17 19:00 07:00 Intake Total 480 ml Output Total 200 ml Balance 280 ml Intake Oral 480 ml Output Urine Total 200 ml # Voids 2 # Bowel Movements 4 1 General Appearance: WD/WN HEENT: atraumatic, anicteric Respiratory/Chest: chest wall non-tender, rhonchi Cardiovascular: normal rate, regular rhythm Abdomen: normal bowel sounds, soft, non tender, non distended Extremities: no cyanosis Skin: no rash Neurologic/Psychiatric: no motor/sensory deficits, alert, oriented x 3 Lymphatic: no neck adenopathy, no groin adenopathy Laboratory Tests 11/26/17 07:09: White Blood Count 6.7, Red Blood Count 3.33L, Hemoglobin 10.2L, Hematocrit 32.9L , Mean Corpuscular Volume 99, Mean Corpuscular Hemoglobin 30.7, Mean Corpuscular Hemoglobin Concent 31.1L, Red Cell Distribution Width 13.1, Platelet Count 234, Mean Platelet Volume 5.9L, Neutrophils (%) (Auto) 50.1, Lymphocytes (%) (Auto) 22.5, Monocytes (%) (Auto) 18.9H, Eosinophils (%) (Auto) 5.6H, Basophils (%) (Auto) 2.9H, Sodium Level 139, Potassium Level 4.6, Chloride Level 100, Carbon Dioxide Level 32, Anion Gap 7, Blood Urea Nitrogen 52H, Creatinine 7.6H, Estimat Glomerular Filtration Rate , Glucose Level 90, Uric Acid 3.6, Calcium Level 8.6, Phosphorus Level 4.9, Magnesium Level 2.1, Total Bilirubin 0.5, Aspartate Amino Transf (AST/SGOT) 22, Alanine Aminotransferase (ALT/SGPT) 12, Alkaline Phosphatase 59, Troponin I 2.935H, Total Protein 6.3L, Albumin 2.8L, Globulin 3.5, Albumin/Globulin Ratio 0.8L Current Medications Medications (Trade) Dose Ordered Sig/Hanna Route PRN Reason Start Time Stop Time Status Last Admin Dose Admin Allopurinol (Zyloprim) 100 mg DAILY ORAL 11/23/17 09:00 12/23/17 08:59 11/26/17 08:34 Amlodipine Besylate (Norvasc) 2.5 mg BID ORAL 11/24/17 09:00 12/23/17 08:59 11/26/17 17:39 Aspirin (ASA) 325 mg DAILY ORAL 11/24/17 09:00 12/24/17 08:59 11/26/17 08:32 Atorvastatin Calcium (Lipitor) 10 mg BEDTIME ORAL 11/23/17 21:00 12/23/17 20:59 11/25/17 20:18 Cyanocobalamin (Vitamin B12) 1,000 mcg DAILY SUBQ 11/25/17 15:00 11/27/17 09:01 11/26/17 08:34 Epoetin Feliz (Procrit (for ESRD on dialysis)) 10,000 units TUE-TUE-TUE SUBQ 11/25/17 21:00 12/25/17 20:59 11/25/17 21:38 Isosorbide Dinitrate (Isordil) 20 mg TID ORAL 11/24/17 09:00 12/23/17 20:59 11/26/17 17:40 Metoprolol Tartrate (Lopressor) 12.5 mg Q12HR ORAL 11/23/17 21:00 12/23/17 20:59 11/26/17 08:33 Pantoprazole (Protonix) 40 mg DAILY ORAL 11/23/17 20:00 12/23/17 19:59 11/26/17 08:38 Sevelamer Carbonate (Renvela) 800 mg THREE TIMES A DAY ORAL 11/25/17 18:00 12/25/17 17:59 11/26/17 17:39 SARAH KELLEY DO Nov 26, 2017 18:57
[2017-11-26 20:00] VITALS: BP 122/48
--- NOTE | 2017-11-26 23:30 | Progress Note ---
DATE: 11/26/2017 CARDIOLOGY PROGRESS NOTE SUBJECTIVE: The patient denies chest pain or shortness of breath. She is status post hemodialysis with ultrafiltration today. She is off BiPAP. Troponin levels are trending down. OBJECTIVE: VITAL SIGNS: Blood pressure 107/58, pulse 62, respirations 23, temperature 99. LUNGS: Bilateral breath sounds. HEART: Regular rhythm and rate. Normal S1, S2. ABDOMEN: Soft. No edema. LABORATORY DATA: Potassium 4.6, BUN 53, creatinine 7.6. Troponin down to 2.9, albumin 2.8. White count 6.7, hemoglobin 10.2. IMPRESSION: 1. Acute myocardial infarction, uncomplicated in an 87-year-old female on chronic hemodialysis. 2. Acute on chronic diastolic congestive heart failure, compensated with hemodialysis and ultrafiltration. 3. End-stage renal disease. 4. Permanent pacemaker. PLAN: 1. Medical management. 2. Advance beta-pamela. 3. Continue statin. 4. Maintain anti-platelet drugs. 5. Optimize blood pressure control. 6. No plans for cardiac catheterization unless recurring symptoms noted. Heraclio Duron M.D. DR: JONNA JOB#: [id number] CC: KATARZYNA
[2017-11-27] VITALS: BP 134/50
--- NOTE | 2017-11-27 03:00 | Progress Note ---
DATE: 11/25/2017 LATE ENTRY CARDIOLOGY PROGRESS NOTE SUBJECTIVE: The patient was seen and evaluated. Case was discussed with Dr. Chand yesterday. The patient has no shortness of breath and feels well. She had recent hemodialysis with ultrafiltration. Monitored rhythm, sinus and sinus bradycardia. OBJECTIVE: VITAL SIGNS: Blood pressure 136/53, heart rate 58, and respiratory rate 18. NECK: Supple. LUNGS: Clear. CARDIAC: Atrial pacing rhythm and regular rate. Normal S1 and S2 with a fourth heart sound. ABDOMEN: Soft. EXTREMITIES: No edema. IMPRESSION: 1. Acute myocardial infarction. 2. Permanent pacemaker. 3. Hypertensive heart disease. 4. End-stage renal disease. 5. Acute on chronic diastolic congestive heart failure. 6. Anemia of chronic kidney disease. PLAN: 1. Continue antiplatelet therapy with aspirin. 2. Maintain anti-lipid therapy with atorvastatin. 3. Titrate beta-pamela, on antihypertensives based on clinical parameters. Medical management in this age group and clinical setting. Heraclio Duron M.D. DR: Kolby JOB#: [id number] CC: KATARZYNA
[2017-11-27 04:00] VITALS: BP 125/50
[2017-11-27 08:00] VITALS: BP 135/46
[2017-11-27 09:50] LABS: BASOPHILS % (AUTO) 1.9 % (0.0-2.0); EOSINOPHILS % (AUTO) 4.2 % (0.0-3.0); HEMATOCRIT 37.8 % (37.0-47.0); HEMOGLOBIN 11.4 G/DL (12.0-16.0); LYMPHOCYTES % (AUTO) 23.9 % (20.0-45.0); MEAN CORPUSCULAR VOLUME 100 FL (80-99); MONOCYTES % (AUTO) 17.6 % (1.0-10.0); NEUTROPHILS % (AUTO) 52.4 % (45.0-75.0); PLATELET COUNT 261 K/UL (150-450); RED BLOOD COUNT 3.77 M/UL (4.20-5.40); RED CELL DISTRIBUTION WIDTH 13.9 % (11.6-14.8)
[2017-11-27 10:05] LABS: ALANINE AMINOTRANSFERASE 9 U/L (12-78); ALBUMIN/GLOBULIN RATIO 0.8 (1.0-2.7); ALKALINE PHOSPHATASE 59 U/L (46-116); ANION GAP 4 mmol/L (5-15); ASPARTATE AMINO TRANSFERASE 27 U/L (15-37); BILIRUBIN,TOTAL 0.7 MG/DL (0.2-1.0); BLOOD UREA NITROGEN 28 mg/dL (7-18); CALCIUM 8.9 MG/DL (8.5-10.1); CARBON DIOXIDE 37 MMOL/L (21-32); CHLORIDE 100 MMOL/L (98-107); CREATININE 5.5 MG/DL (0.55-1.30); PHOSPHORUS 3.8 MG/DL (2.5-4.9); POTASSIUM 4.1 MMOL/L (3.5-5.1); SODIUM 141 MMOL/L (136-145)
--- NOTE | 2017-11-27 10:11 | Nephrology Progress Note ---
Assessment/Plan Problem List: (1) Acute respiratory failure with hypoxia (2) Renal failure Assessment: on HD Assessment Respiratory distress likely volume over load resolved post HD ? underlying pneumonia ESRD presents with CHF and high K resolved Elevated Troponin I , decreasing Anemia Other : s/p L2 compression fracture- left-sided, left leg lower extremity weakness, ESRD on Dialysis, PACER diabetes, hypertension, hypercholesterolemia. Plan Plan; last HD 11/26 next 11/28 pulmonary support optimize cardiac status antibiotics Per orders PT OT Subjective ROS Limited/Unobtainable: No Constitutional: Reports: malaise Objective Objective Last 24 Hour Vital Signs Date Time Temp Pulse Resp B/P (MAP) Pulse Ox O2 Delivery O2 Flow Rate FiO2 11/27/17 08:00 97.2 60 19 135/46 90 11/27/17 08:00 60 11/27/17 07:19 Nasal Cannula 4.0 36 11/27/17 07:18 67 18 Nasal Cannula 4.0 36 11/27/17 07:18 95 Nasal Cannula 4.0 36 11/27/17 04:00 98.4 66 20 125/50 96 Nasal Cannula 4.0 11/27/17 03:36 63 11/27/17 00:00 98.4 60 20 134/50 94 Nasal Cannula 4.0 11/26/17 23:49 60 11/26/17 21:41 69 122/48 11/26/17 20:00 99.0 69 23 122/48 94 Nasal Cannula 4.0 11/26/17 19:30 63 11/26/17 18:56 96 Nasal Cannula 4.0 36 11/26/17 18:56 Nasal Cannula 4.0 36 11/26/17 18:55 64 18 Nasal Cannula 4.0 36 11/26/17 17:57 Nasal Cannula 4.0 36 11/26/17 17:40 107/58 11/26/17 17:39 62 107/58 11/26/17 16:00 99.0 77 23 107/58 94 Nasal Cannula 4.0 11/26/17 16:00 62 11/26/17 12:33 136/53 11/26/17 12:08 Nasal Cannula 4.0 36 11/26/17 12:00 60 11/26/17 12:00 98.1 61 19 122/55 94 Nasal Cannula 4.0 11/26/17 11:40 Nasal Cannula 4.0 36 Intake and Output 11/26/17 11/27/17 19:00 07:00 Intake Total 480 ml 50 ml Output Total 3200 ml Balance -2720 ml 50 ml Intake Oral 480 ml 50 ml Output Urine Total 200 ml Hemodialysis UF 3000 ml # Voids 2 3 # Bowel Movements 3 Laboratory Tests 11/27/17 08:40: White Blood Count 7.0, Red Blood Count 3.77L, Hemoglobin 11.4L, Hematocrit 37.8 , Mean Corpuscular Volume 100H, Mean Corpuscular Hemoglobin 30.2, Mean Corpuscular Hemoglobin Concent 30.1L, Red Cell Distribution Width 13.9, Platelet Count 261, Mean Platelet Volume 6.4L, Neutrophils (%) (Auto) 52.4, Lymphocytes (%) (Auto) 23.9, Monocytes (%) (Auto) 17.6H, Eosinophils (%) (Auto) 4.2H, Basophils (%) (Auto) 1.9 11/27/17 08:45: Sodium Level 141, Potassium Level 4.1, Chloride Level 100, Carbon Dioxide Level 37H, Anion Gap 4L, Blood Urea Nitrogen 28H, Creatinine 5.5H, Estimat Glomerular Filtration Rate , Glucose Level 120H, Calcium Level 8.9, Phosphorus Level 3.8, Magnesium Level 1.8, Total Bilirubin 0.7, Aspartate Amino Transf (AST/SGOT) 27, Alanine Aminotransferase (ALT/SGPT) 9L, Alkaline Phosphatase 59, Troponin I [ Pending], C-Reactive Protein, Quantitative 2.5H, Pro-B-Type Natriuretic Peptide 26892W, Total Protein 6.9, Albumin 3.0L, Globulin 3.9, Albumin/Globulin Ratio 0.8L Height (Feet): 4 Height (Inches): 9.00 Weight (Pounds): 110 General Appearance: no apparent distress Objective no signs of chf ALBER CHASE Nov 27, 2017 10:11
[2017-11-27] MEDS: Allopurinol 100mg Tab ORAL SCH (10:21)
[2017-11-27] MEDS: Metoprolol 25mg tab ORAL SCH ×2 (10:22→20:19)
[2017-11-27] MEDS: Vitamin B12 1000mcg/ml Inj SUBQ SCH (11:45)
[2017-11-27 12:00] VITALS: BP 123/53
[2017-11-27 16:00] VITALS: BP 124/57
--- NOTE | 2017-11-27 16:02 | Pulmonology Progress Note ---
Assessment/Plan Assessment/Plan AMI renal failure on dialysis diabetes, hypertension hypercholesterolemia hd per renal off BiPAP for now, but would advise qhs and prn distrss but she refuses labs reviewed troponin continue to be trending down o2 encourage po cxr 1-2 days Subjective ROS Limited/Unobtainable: Yes Allergies: Coded Allergies: JUDAH INHIBITORS (Verified Allergy, Mild, 10/06/10) Subjective seen and examined refusing bipap mild distrs this afternoon on NGT feeds awake does not get oob no cp nv or bleeding sp hd no fever Objective Last 24 Hour Vital Signs Date Time Temp Pulse Resp B/P (MAP) Pulse Ox O2 Delivery O2 Flow Rate FiO2 11/27/17 14:03 123/53 11/27/17 12:00 98.0 60 20 123/53 90 Nasal Cannula 4.0 11/27/17 11:46 60 11/27/17 10:22 60 135/46 11/27/17 10:21 135/46 11/27/17 10:21 60 135/46 11/27/17 08:00 97.2 60 19 135/46 90 11/27/17 08:00 60 11/27/17 07:19 Nasal Cannula 4.0 36 11/27/17 07:18 67 18 Nasal Cannula 4.0 36 11/27/17 07:18 95 Nasal Cannula 4.0 36 11/27/17 04:00 98.4 66 20 125/50 96 Nasal Cannula 4.0 11/27/17 03:36 63 11/27/17 00:00 98.4 60 20 134/50 94 Nasal Cannula 4.0 11/26/17 23:49 60 11/26/17 21:41 69 122/48 11/26/17 20:00 99.0 69 23 122/48 94 Nasal Cannula 4.0 11/26/17 19:30 63 11/26/17 18:56 96 Nasal Cannula 4.0 36 11/26/17 18:56 Nasal Cannula 4.0 36 11/26/17 18:55 64 18 Nasal Cannula 4.0 36 11/26/17 17:57 Nasal Cannula 4.0 36 11/26/17 17:40 107/58 11/26/17 17:39 62 107/58 Intake and Output 11/26/17 11/27/17 19:00 07:00 Intake Total 480 ml 50 ml Output Total 3200 ml Balance -2720 ml 50 ml Intake Oral 480 ml 50 ml Output Urine Total 200 ml Hemodialysis UF 3000 ml # Voids 2 3 # Bowel Movements 3 General Appearance: cachetic HEENT: atraumatic, anicteric Respiratory/Chest: respiratory distress - mild, rhonchi Cardiovascular: normal rate, regular rhythm, murmur systolic, edema Abdomen: soft, non tender, no organomegaly Neurologic/Psychiatric: alert, disoriented Laboratory Tests 11/27/17 08:40: White Blood Count 7.0, Red Blood Count 3.77L, Hemoglobin 11.4L, Hematocrit 37.8 , Mean Corpuscular Volume 100H, Mean Corpuscular Hemoglobin 30.2, Mean Corpuscular Hemoglobin Concent 30.1L, Red Cell Distribution Width 13.9, Platelet Count 261, Mean Platelet Volume 6.4L, Neutrophils (%) (Auto) 52.4, Lymphocytes (%) (Auto) 23.9, Monocytes (%) (Auto) 17.6H, Eosinophils (%) (Auto) 4.2H, Basophils (%) (Auto) 1.9 11/27/17 08:45: Sodium Level 141, Potassium Level 4.1, Chloride Level 100, Carbon Dioxide Level 37H, Anion Gap 4L, Blood Urea Nitrogen 28H, Creatinine 5.5H, Estimat Glomerular Filtration Rate , Glucose Level 120H, Calcium Level 8.9, Phosphorus Level 3.8, Magnesium Level 1.8, Total Bilirubin 0.7, Aspartate Amino Transf (AST/SGOT) 27, Alanine Aminotransferase (ALT/SGPT) 9L, Alkaline Phosphatase 59, Troponin I 2.459H, C-Reactive Protein, Quantitative 2.5H, Pro-B-Type Natriuretic Peptide 50222R, Total Protein 6.9, Albumin 3.0L, Globulin 3.9, Albumin/Globulin Ratio 0.8L Current Medications Medications (Trade) Dose Ordered Sig/Hanna Route PRN Reason Start Time Stop Time Status Last Admin Dose Admin Allopurinol (Zyloprim) 100 mg DAILY ORAL 11/23/17 09:00 12/23/17 08:59 11/27/17 10:21 Amlodipine Besylate (Norvasc) 2.5 mg BID ORAL 11/24/17 09:00 12/23/17 08:59 11/27/17 10:21 Aspirin (ASA) 325 mg DAILY ORAL 11/24/17 09:00 12/24/17 08:59 11/27/17 10:21 Atorvastatin Calcium (Lipitor) 10 mg BEDTIME ORAL 11/23/17 21:00 12/23/17 20:59 11/26/17 21:41 Epoetin Feliz (Procrit (for ESRD on dialysis)) 10,000 units TUE-TUE-TUE SUBQ 11/25/17 21:00 12/25/17 20:59 11/25/17 21:38 Isosorbide Dinitrate (Isordil) 20 mg TID ORAL 11/24/17 09:00 12/23/17 20:59 11/27/17 14:03 Metoprolol Tartrate (Lopressor) 25 mg Q12HR ORAL 11/27/17 09:00 12/27/17 08:59 11/27/17 10:22 Pantoprazole (Protonix) 40 mg DAILY ORAL 11/23/17 20:00 12/23/17 19:59 11/27/17 10:21 Sevelamer Carbonate (Renvela) 800 mg THREE TIMES A DAY ORAL 11/25/17 18:00 12/25/17 17:59 11/27/17 14:02 SARAH KELLEY DO Nov 27, 2017 16:02
[2017-11-27 20:00] VITALS: BP 126/57
[2017-11-28] VITALS: BP 137/47
[2017-11-28 04:00] VITALS: BP 134/47
[2017-11-28 06:36] LABS: EOSINOPHILS % (AUTO) 3.8 % (0.0-3.0); HEMATOCRIT 31.4 % (37.0-47.0); HEMOGLOBIN 9.9 G/DL (12.0-16.0); LYMPHOCYTES % (AUTO) 23.4 % (20.0-45.0); MEAN CORPUSCULAR VOLUME 100 FL (80-99); MONOCYTES % (AUTO) 18.2 % (1.0-10.0); NEUTROPHILS % (AUTO) 52.5 % (45.0-75.0); PLATELET COUNT 231 K/UL (150-450); RED BLOOD COUNT 3.14 M/UL (4.20-5.40); RED CELL DISTRIBUTION WIDTH 13.7 % (11.6-14.8); WHITE BLOOD COUNT 6.8 K/UL (4.8-10.8)
[2017-11-28 06:53] LABS: ALANINE AMINOTRANSFERASE 6 U/L (12-78); ALBUMIN 2.8 G/DL (3.4-5.0); ALBUMIN/GLOBULIN RATIO 0.8 (1.0-2.7); ALKALINE PHOSPHATASE 59 U/L (46-116); ANION GAP 6 mmol/L (5-15); ASPARTATE AMINO TRANSFERASE 18 U/L (15-37); BILIRUBIN,TOTAL 0.5 MG/DL (0.2-1.0); BLOOD UREA NITROGEN 34 mg/dL (7-18); CALCIUM 8.9 MG/DL (8.5-10.1); CARBON DIOXIDE 35 MMOL/L (21-32); CHLORIDE 100 MMOL/L (98-107); CREATININE 6.9 MG/DL (0.55-1.30); PHOSPHORUS 3.9 MG/DL (2.5-4.9); POTASSIUM 4.6 MMOL/L (3.5-5.1); SODIUM 141 MMOL/L (136-145)
[2017-11-28 08:00] VITALS: BP 140/55
[2017-11-28] MEDS: Allopurinol 100mg Tab ORAL SCH (09:11)
[2017-11-28] MEDS: Metoprolol 25mg tab ORAL SCH ×2 (09:11→20:32)
--- NOTE | 2017-11-28 09:52 | Pulmonology Progress Note ---
Assessment/Plan Assessment/Plan AMI renal failure on dialysis diabetes, hypertension hypercholesterolemia looks better off BiPAP for now I suspect she may be able to go home in next 1-2 days HD today per renal Subjective Interval Events: Much improved Constitutional: Reports: no symptoms HEENT: Repors: no symptoms Respiratory: Reports: no symptoms Cardiovascular: Reports: no symptoms Allergies: Coded Allergies: JUDAH INHIBITORS (Verified Allergy, Mild, 10/06/10) Objective Last 24 Hour Vital Signs Date Time Temp Pulse Resp B/P (MAP) Pulse Ox O2 Delivery O2 Flow Rate FiO2 11/28/17 09:12 99 140/55 11/28/17 09:11 99 140/55 11/28/17 09:11 140/55 11/28/17 04:00 60 11/28/17 04:00 98.0 60 18 134/47 94 Nasal Cannula 3.0 11/28/17 00:00 60 11/28/17 00:00 98.1 60 18 137/47 92 Nasal Cannula 4.0 11/27/17 20:45 94 Nasal Cannula 4.0 36 11/27/17 20:45 66 18 Nasal Cannula 4.0 36 11/27/17 20:45 Nasal Cannula 4.0 36 11/27/17 20:19 60 126/57 11/27/17 20:00 60 11/27/17 20:00 98.6 60 20 126/57 95 Nasal Cannula 4.0 11/27/17 17:26 124/57 11/27/17 17:26 60 124/57 11/27/17 17:01 60 11/27/17 16:00 98.2 60 20 124/57 95 Nasal Cannula 4.0 11/27/17 14:03 123/53 11/27/17 12:00 98.0 60 20 123/53 90 Nasal Cannula 4.0 11/27/17 11:46 60 11/27/17 10:22 60 135/46 11/27/17 10:21 135/46 11/27/17 10:21 60 135/46 Intake and Output 11/27/17 11/28/17 19:00 07:00 Intake Total 360 ml 100 ml Balance 360 ml 100 ml Intake Oral 360 ml 100 ml # Voids 2 1 # Bowel Movements 3 General Appearance: no acute distress HEENT: normocephalic Respiratory/Chest: chest wall non-tender, decreased breath sounds, crackles/ rales Cardiovascular: normal peripheral pulses, normal rate Laboratory Tests 11/28/17 04:45: White Blood Count 6.8, Red Blood Count 3.14L, Hemoglobin 9.9L, Hematocrit 31.4L , Mean Corpuscular Volume 100H, Mean Corpuscular Hemoglobin 31.4H, Mean Corpuscular Hemoglobin Concent 31.4L, Red Cell Distribution Width 13.7, Platelet Count 231, Mean Platelet Volume 6.4L, Neutrophils (%) (Auto) 52.5, Lymphocytes (%) (Auto) 23.4, Monocytes (%) (Auto) 18.2H, Eosinophils (%) (Auto) 3.8H, Basophils (%) (Auto) 2.0, Sodium Level 141, Potassium Level 4.6, Chloride Level 100, Carbon Dioxide Level 35H, Anion Gap 6, Blood Urea Nitrogen 34H, Creatinine 6.9H, Estimat Glomerular Filtration Rate , Glucose Level 97, Uric Acid 3.3, Calcium Level 8.9, Phosphorus Level 3.9, Magnesium Level 2.2, Total Bilirubin 0.5, Aspartate Amino Transf (AST/SGOT) 18, Alanine Aminotransferase ( ALT/SGPT) 6L, Alkaline Phosphatase 59, Troponin I 2.414H, C-Reactive Protein, Quantitative 1.7H, Pro-B-Type Natriuretic Peptide > 01689F, Total Protein 6.2L, Albumin 2.8L, Globulin 3.4, Albumin/Globulin Ratio 0.8L Current Medications Medications (Trade) Dose Ordered Sig/Hanna Route PRN Reason Start Time Stop Time Status Last Admin Dose Admin Allopurinol (Zyloprim) 100 mg DAILY ORAL 11/23/17 09:00 12/23/17 08:59 11/28/17 09:11 Amlodipine Besylate (Norvasc) 2.5 mg BID ORAL 11/24/17 09:00 12/23/17 08:59 11/28/17 09:12 Aspirin (ASA) 325 mg DAILY ORAL 11/24/17 09:00 12/24/17 08:59 11/28/17 09:11 Atorvastatin Calcium (Lipitor) 10 mg BEDTIME ORAL 11/23/17 21:00 12/23/17 20:59 11/27/17 20:19 Epoetin Feliz (Procrit (for ESRD on dialysis)) 10,000 units TUE SUBQ 11/25/17 21:00 12/25/17 20:59 11/25/17 21:38 Isosorbide Dinitrate (Isordil) 20 mg TID ORAL 11/24/17 09:00 12/23/17 20:59 11/28/17 09:11 Metoprolol Tartrate (Lopressor) 25 mg Q12HR ORAL 11/27/17 09:00 12/27/17 08:59 11/28/17 09:11 Pantoprazole (Protonix) 40 mg DAILY ORAL 11/23/17 20:00 12/23/17 19:59 11/28/17 09:10 Sevelamer Carbonate (Renvela) 800 mg THREE TIMES A DAY ORAL 11/25/17 18:00 12/25/17 17:59 11/28/17 09:19 Andre Stallworth MD Nov 28, 2017 09:51
--- NOTE | 2017-11-28 10:40 | Nephrology Progress Note ---
Assessment/Plan Problem List: (1) Acute respiratory failure with hypoxia (2) Renal failure Assessment: on HD (3) cad (4) NSTEMI (non-ST elevated myocardial infarction) Assessment Respiratory distress likely volume over load resolved post HD ? underlying pneumonia ESRD presents with CHF and high K resolved Elevated Troponin I , decreasing Anemia Other : s/p L2 compression fracture- left-sided, left leg lower extremity weakness, ESRD on Dialysis, PACER diabetes, hypertension, hypercholesterolemia. Plan Plan; last HD 11/26 next 11/28 increase nitrates pulmonary support optimize cardiac status antibiotics Per orders PT OT Subjective ROS Limited/Unobtainable: No Constitutional: Reports: malaise Objective Objective Last 24 Hour Vital Signs Date Time Temp Pulse Resp B/P (MAP) Pulse Ox O2 Delivery O2 Flow Rate FiO2 11/28/17 09:57 60 16 Room Air 21 11/28/17 09:24 90 Room Air 21 11/28/17 09:24 Room Air 21 11/28/17 09:12 99 140/55 11/28/17 09:11 99 140/55 11/28/17 09:11 140/55 11/28/17 08:00 97.3 60 18 140/55 97 Nasal Cannula 3.0 11/28/17 08:00 60 11/28/17 04:00 60 11/28/17 04:00 98.0 60 18 134/47 94 Nasal Cannula 3.0 11/28/17 00:00 60 11/28/17 00:00 98.1 60 18 137/47 92 Nasal Cannula 4.0 11/27/17 20:45 94 Nasal Cannula 4.0 36 11/27/17 20:45 66 18 Nasal Cannula 4.0 36 11/27/17 20:45 Nasal Cannula 4.0 36 11/27/17 20:19 60 126/57 11/27/17 20:00 60 11/27/17 20:00 98.6 60 20 126/57 95 Nasal Cannula 4.0 11/27/17 17:26 124/57 11/27/17 17:26 60 124/57 11/27/17 17:01 60 11/27/17 16:00 98.2 60 20 124/57 95 Nasal Cannula 4.0 11/27/17 14:03 123/53 11/27/17 12:00 98.0 60 20 123/53 90 Nasal Cannula 4.0 11/27/17 11:46 60 Intake and Output 11/27/17 11/28/17 19:00 07:00 Intake Total 360 ml 100 ml Balance 360 ml 100 ml Intake Oral 360 ml 100 ml # Voids 2 1 # Bowel Movements 3 Laboratory Tests 11/28/17 04:45: White Blood Count 6.8, Red Blood Count 3.14L, Hemoglobin 9.9L, Hematocrit 31.4L , Mean Corpuscular Volume 100H, Mean Corpuscular Hemoglobin 31.4H, Mean Corpuscular Hemoglobin Concent 31.4L, Red Cell Distribution Width 13.7, Platelet Count 231, Mean Platelet Volume 6.4L, Neutrophils (%) (Auto) 52.5, Lymphocytes (%) (Auto) 23.4, Monocytes (%) (Auto) 18.2H, Eosinophils (%) (Auto) 3.8H, Basophils (%) (Auto) 2.0, Sodium Level 141, Potassium Level 4.6, Chloride Level 100, Carbon Dioxide Level 35H, Anion Gap 6, Blood Urea Nitrogen 34H, Creatinine 6.9H, Estimat Glomerular Filtration Rate , Glucose Level 97, Uric Acid 3.3, Calcium Level 8.9, Phosphorus Level 3.9, Magnesium Level 2.2, Total Bilirubin 0.5, Aspartate Amino Transf (AST/SGOT) 18, Alanine Aminotransferase ( ALT/SGPT) 6L, Alkaline Phosphatase 59, Troponin I 2.414H, C-Reactive Protein, Quantitative 1.7H, Pro-B-Type Natriuretic Peptide > 86203D, Total Protein 6.2L, Albumin 2.8L, Globulin 3.4, Albumin/Globulin Ratio 0.8L Height (Feet): 4 Height (Inches): 9.00 Weight (Pounds): 110 General Appearance: no apparent distress Objective no signs of chf ALBER CHASE Nov 28, 2017 10:40
[2017-11-28 12:00] VITALS: BP_SYST 130; BP_SYST 135; BP_DIAS 56; BP_DIAS 58
[2017-11-28] MEDS ORDERED: Nitroglycerin Patch 0.2mg/hr TDERMAL SCH (12:00)
[2017-11-28 16:20] VITALS: BP 121/46
[2017-11-28 20:00] VITALS: BP 122/49
[2017-11-28] MEDS: Epogen (for ESRD on dialysis) SUBQ SCH (20:58)
[2017-11-29] VITALS: BP 133/52
--- NOTE | 2017-11-29 03:00 | Progress Note ---
DATE: 11/27/2017 CARDIOLOGY PROGRESS NOTE Late entry for 11/27/2017. SUBJECTIVE: The patient has no chest pain or shortness of breath. Monitored rhythm is paced. OBJECTIVE: LUNGS: Good breath sounds. HEART: Regular rhythm and rate. Normal S1, S2. A 1/6 systolic apical murmur. ABDOMEN: Soft. EXTREMITIES: No edema. LABORATORY DATA: Labs reviewed. IMPRESSION: 1. Status post acute myocardial infarction. 2. No signs of acute congestive heart failure. 3. Stable cardiac rhythm with pacemaker functioning appropriately. 4. End-stage renal disease, on hemodialysis. 5. Hypertensive heart disease with controlled blood pressure. PLAN: 1. Continue medical therapy. 2. Hemodialysis with ultrafiltration. 3. No plan for any further cardiovascular workup unless change in cardiac status is noted. Heraclio Duron M.D. DR: SAUNDRA JOB#: [id number] CC:
--- NOTE | 2017-11-29 03:15 | Progress Note ---
DATE: 11/28/2017 CARDIOLOGY PROGRESS NOTE SUBJECTIVE: The patient is status post hemodialysis with ultrafiltration today. She has some cough, but no chest pain. No shortness of breath noted. OBJECTIVE: VITALS SIGNS: Remained stable with blood pressure 125/60 range, heart rate 70, and respiratory rate 18. Monitored rhythm paced. NECK: Supple. LUNGS: Clear. CARDIAC: Regular. Normal S1, S2 with a fourth heart sound. ABDOMEN: Soft. EXTREMITIES: No edema. IMPRESSION: 1. Uncomplicated acute myocardial infarction. 2. End-stage renal disease. 3. Permanent pacemaker. 4. Hypertensive heart disease. 5. No clinical signs of acute congestive heart failure. PLAN: 1. Stable for outpatient followup on current cardiovascular regimen. 2. No plan for cardiac catheterization or additional ischemia workup in view of advanced age, performance status, and benign clinical course. 3. Outpatient pacemaker interrogation to follow. Heraclio Duron M.D. DR: SAUNDRA JOB#: [id number] CC:
[2017-11-29 04:00] VITALS: BP 129/49
[2017-11-29 08:00] VITALS: BP 126/50
[2017-11-29] MEDS: Allopurinol 100mg Tab ORAL SCH (09:17)
[2017-11-29 09:19] VITALS: BP 126/50
[2017-11-29] MEDS: Metoprolol 25mg tab ORAL SCH (09:19)
--- NOTE | 2017-11-29 09:51 | Pulmonology Progress Note ---
Assessment/Plan Assessment/Plan AMI renal failure on dialysis diabetes, hypertension hypercholesterolemia looks better DC home Discussed with renal Subjective Interval Events: Doing better Constitutional: Reports: no symptoms HEENT: Repors: no symptoms Respiratory: Reports: no symptoms Allergies: Coded Allergies: JUDAH INHIBITORS (Verified Allergy, Mild, 10/06/10) Objective Last 24 Hour Vital Signs Date Time Temp Pulse Resp B/P (MAP) Pulse Ox O2 Delivery O2 Flow Rate FiO2 11/29/17 09:19 60 126/50 11/29/17 09:18 60 126/50 11/29/17 08:00 70 11/29/17 08:00 98.1 60 18 126/50 92 Nasal Cannula 4.0 11/29/17 06:50 94 Nasal Cannula 4.0 36 11/29/17 06:50 65 16 Nasal Cannula 4.0 36 11/29/17 06:50 Nasal Cannula 4.0 36 11/29/17 04:00 60 11/29/17 04:00 97.7 60 20 129/49 93 Nasal Cannula 4.0 11/29/17 00:00 98.0 56 20 133/52 93 Nasal Cannula 4.0 11/29/17 00:00 60 11/28/17 20:32 61 122/49 11/28/17 20:00 98.1 61 20 122/49 94 Nasal Cannula 4.0 11/28/17 20:00 60 11/28/17 19:49 Nasal Cannula 4.0 36 11/28/17 19:49 61 16 Nasal Cannula 4.0 36 11/28/17 19:49 93 Nasal Cannula 4.0 36 11/28/17 18:04 60 120/46 11/28/17 18:03 120/46 11/28/17 16:28 120/46 11/28/17 16:20 97.7 60 20 121/46 Nasal Cannula 5.0 11/28/17 16:20 Nasal Cannula 5.0 11/28/17 16:00 60 11/28/17 13:00 130/56 11/28/17 12:00 97.7 60 18 130/56 95 Nasal Cannula 3.0 11/28/17 12:00 60 11/28/17 12:00 97.5 60 16 135/58 Nasal Cannula 5.0 11/28/17 12:00 Nasal Cannula 5.0 11/28/17 09:57 60 16 Room Air 21 Intake and Output 11/28/17 11/29/17 19:00 07:00 Intake Total 2220 ml Output Total 1650 ml Balance 570 ml Intake Oral 520 ml Hemodialysis 1700 ml Hemodialysis UF 1650 ml # Voids 2 1 General Appearance: no acute distress HEENT: normocephalic Respiratory/Chest: chest wall non-tender, lungs clear Cardiovascular: normal peripheral pulses, normal rate Current Medications Medications (Trade) Dose Ordered Sig/Hanna Route PRN Reason Start Time Stop Time Status Last Admin Dose Admin Allopurinol (Zyloprim) 100 mg DAILY ORAL 11/23/17 09:00 12/23/17 08:59 11/29/17 09:17 Amlodipine Besylate (Norvasc) 2.5 mg BID ORAL 11/24/17 09:00 12/23/17 08:59 11/29/17 09:18 Aspirin (ASA) 325 mg DAILY ORAL 11/24/17 09:00 12/24/17 08:59 11/29/17 09:17 Atorvastatin Calcium (Lipitor) 10 mg BEDTIME ORAL 11/23/17 21:00 12/23/17 20:59 11/28/17 20:32 Epoetin Feliz (Procrit (for ESRD on dialysis)) 10,000 units TUE-TUE-TUE SUBQ 11/25/17 21:00 12/25/17 20:59 11/28/17 20:58 Metoprolol Tartrate (Lopressor) 25 mg Q12HR ORAL 11/27/17 09:00 12/27/17 08:59 11/29/17 09:19 Nitroglycerin (Ntg) 1 patch Q24H TDERMAL 11/28/17 12:00 12/28/17 11:59 11/28/17 16:28 Pantoprazole (Protonix) 40 mg DAILY ORAL 11/23/17 20:00 12/23/17 19:59 11/29/17 09:17 Sevelamer Carbonate (Renvela) 800 mg THREE TIMES A DAY ORAL 11/25/17 18:00 12/25/17 17:59 11/29/17 09:17 Andre Stallworth MD Nov 29, 2017 09:51
[2017-11-29] MEDS ORDERED: NS 500ML ONE (10:59)
--- NOTE | 2017-11-29 11:59 | Nephrology Progress Note ---
Assessment/Plan Problem List: (1) Acute respiratory failure with hypoxia (2) Renal failure Assessment: on HD (3) cad (4) NSTEMI (non-ST elevated myocardial infarction) Assessment stable and asymptomatic Respiratory distress likely volume over load resolved post HD ? underlying pneumonia ESRD presents with CHF and high K resolved Elevated Troponin I , decreasing Anemia Other : s/p L2 compression fracture- left-sided, left leg lower extremity weakness, ESRD on Dialysis, PACER diabetes, hypertension, hypercholesterolemia. Plan Plan; last HD 11/28 increase nitrates pulmonary support optimize cardiac status antibiotics Per orders PT OT ? DC Subjective ROS Limited/Unobtainable: No Interval Events/Complaints seen 9.30 am Constitutional: Reports: malaise Objective Objective Last 24 Hour Vital Signs Date Time Temp Pulse Resp B/P (MAP) Pulse Ox O2 Delivery O2 Flow Rate FiO2 11/29/17 09:19 60 126/50 11/29/17 09:18 60 126/50 11/29/17 08:00 70 11/29/17 08:00 98.1 60 18 126/50 92 Nasal Cannula 4.0 11/29/17 06:50 94 Nasal Cannula 4.0 36 11/29/17 06:50 65 16 Nasal Cannula 4.0 36 11/29/17 06:50 Nasal Cannula 4.0 36 11/29/17 04:00 60 11/29/17 04:00 97.7 60 20 129/49 93 Nasal Cannula 4.0 11/29/17 00:00 98.0 56 20 133/52 93 Nasal Cannula 4.0 11/29/17 00:00 60 11/28/17 20:32 61 122/49 11/28/17 20:00 98.1 61 20 122/49 94 Nasal Cannula 4.0 11/28/17 20:00 60 11/28/17 19:49 Nasal Cannula 4.0 36 11/28/17 19:49 61 16 Nasal Cannula 4.0 36 11/28/17 19:49 93 Nasal Cannula 4.0 36 11/28/17 18:04 60 120/46 11/28/17 18:03 120/46 11/28/17 16:28 120/46 11/28/17 16:20 97.7 60 20 121/46 Nasal Cannula 5.0 11/28/17 16:20 Nasal Cannula 5.0 11/28/17 16:00 60 11/28/17 13:00 130/56 11/28/17 12:00 97.7 60 18 130/56 95 Nasal Cannula 3.0 11/28/17 12:00 60 11/28/17 12:00 97.5 60 16 135/58 Nasal Cannula 5.0 11/28/17 12:00 Nasal Cannula 5.0 Intake and Output 11/28/17 11/29/17 19:00 07:00 Intake Total 2220 ml Output Total 1650 ml Balance 570 ml Intake Oral 520 ml Hemodialysis 1700 ml Hemodialysis UF 1650 ml # Voids 2 1 Height (Feet): 4 Height (Inches): 9.00 Weight (Pounds): 110 General Appearance: no apparent distress Objective no signs of chf ALBER CHASE Nov 29, 2017 11:59
--- NOTE | 2017-11-30 09:43 | Progress Note ---
DATE: 11/29/2017 CARDIOLOGY PROGRESS NOTE SUBJECTIVE: The patient is status post hemodialysis with ultrafiltration today. The patient has no shortness of breath or chest pain. Troponin levels continue to normalize. Today, it is 2.41. OBJECTIVE: VITAL SIGNS: Blood pressure 126/50, heart rate 60, and respiratory rate 18. Rate, monitored rhythm paced. LUNGS: Clear. CARDIAC: Regular. Normal S1, S2. ABDOMEN: Soft. EXTREMITIES: No edema. IMPRESSION: 1. Acute myocardial infarction uncomplicated. 2. End-stage renal disease. 3. Chronic diastolic congestive heart failure. 4. Permanent pacemaker with stable function. 5. Osteoarthritis. 6. Advanced age and poor performance status. PLAN: 1. Medical therapy. 2. Medications as is. 3. Continue with hemodialysis and ultrafiltration. 4. Outpatient pacemaker interrogation. 5. Maintain anti-platelet therapy, statin, and beta-blockade. 6. No plan for cardiac catheterization unless signs of recurrent ischemia, refractory heart failure, or malignant arrhythmias ensue. Heraclio Duron M.D. DR: DEEPTI JOB#: [id number] CC:
--- NOTE | 2017-12-03 01:15 | Discharge Summary 2 SIG ---
DATE OF ADMISSION: 11/22/2017 DATE OF DISCHARGE: 11/29/2017 ATTENDING MD: Dr. Moy Chand CONSULTANTS: 1. Heraclio Duron M.D. 2. Alberto Frey M.D. BRIEF HOSPITAL COURSE: The patient is an 87-year-old female from home, presented having after increased shortness of breath for one day. There was no chest pain. No nausea, vomiting, or diarrhea. She had dialysis on 11/20/2017. She has history of end-stage renal disease, on hemodialysis MWF. She had hard time breathing and unable to lay flat. She has past medical history significant for diabetes mellitus, hypertension, coronary artery disease, end-stage renal disease, and has a pacemaker on the left chest. On evaluation at ED, the patient was hypoxemic at 64% on room air. She was immediately placed on BiPAP. Blood work showed leukocytosis, WBC 16, hemoglobin 11, hematocrit 37. Creatinine was 7.2, BUN 72. Troponin was 1. BNP 33651. EKG showed paced rhythm with ST depression laterally. Chest x-ray showed right mid and lower lung and left retrocardiac infiltrates versus edema, suspect bilateral pleural effusions. She was given aspirin and Lasix. She was given Lovenox. She was admitted to [facility] for evaluation of respiratory failure and CO. She underwent cardiac evaluation. Serial troponins were monitored, initial troponin 1, second troponin was elevated to 3, and third troponin was 4. She was continued with anti-platelet therapy with aspirin and Lipitor 10 mg at bedtime. She was given Isordil 20 mg t.i.d. and metoprolol initially 12.5 mg. She underwent inpatient hemodialysis and was much better after HD. She was taken off BiPAP and was placed on 4 liters nasal cannula. She continued with inpatient hemodialysis with ultrafiltration. She was given phosphate binders and Procrit and iron supplements. She was given nitroglycerin patch and metoprolol was eventually increased to 25 mg q.12 h. She was eventually discharged home. Advised to follow up with outpatient hemodialysis. FINAL DIAGNOSES: 1. Acute myocardial infarction. 2. End-stage renal disease, on hemodialysis. 3. Acute on chronic diastolic congestive heart failure. 4. Permanent pacemaker with stable function. 5. Coronary artery disease. 6. Acute respiratory failure with hypoxia requiring BiPAP, resolved. 7. Osteoarthritis. 8. L2 compression fracture. 9. Hypertension. 10. Hypercholesterolemia. 11. Diabetes mellitus type 2. 12. Left lower leg weakness. 13. Hypercholesterolemia. DISPOSITION: The patient was discharged home. DISCHARGE MEDICATIONS: Refer to medication list. DISCHARGE INSTRUCTIONS: Follow up with PMD in a week. Continue with hemodialysis MWF. Andre Stallworth M.D. I have been assigned to dictate discharge summary on this account and I was not involved in the patient's management. Mylene Allen N.P. DR: Gabrielle JOB#: [id number] CC: [email or web address]
--- NOTE | 2017-12-03 16:02 | Cardiology Report ---
APPROVED REPORT EKG Measurement Heart [id number] AV sequential pacemaker Abnormal ECG
--- NOTE | 2017-12-03 16:12 | Cardiology Report ---
APPROVED REPORT EKG Measurement Heart [id number] Atrial pacing Left axis deviation Left bundle branch block Abnormal ECG
--- NOTE | 2017-12-05 11:04 | Cardiology Report ---
APPROVED REPORT EXAM: Two-dimensional and M-mode echocardiogram with Doppler and color Doppler. INDICATION Acute myocard infarction M-Mode DIMENSIONS IVSd1.3 (0.7-1.1cm)Left Atrium (MM)4.7 (1.6-4.0cm) LVDd5.4 (3.5-5.6cm)Aortic Root2.7 (2.0-3.7cm) PWd1.4 (0.7-1.1cm)Aortic Cusp Exc.1.6 (1.5-2.0cm) LVDs3.9 (2.5-4.0cm) PWs1.6 cm Normal left ventricular chamber size, systolic function and wall motion. Left ventricular ejection fraction estimated to be 55-60%. Moderate left ventricular hypertrophy. No evidence of pericardial or pleural effusion. Right cardiac chamber sizes are within normal limits. Mild left atrial enlargement by 2D. Focal aortic valve sclerosis with adequate cusp excursion. Thickened mitral valve leaflets with normal excursion. Mild mitral annulus and aortic root calcification. Pulmonic valve is well visualized. Normal tricuspid valve structure. IVC is normal in size and collapsible with respiration. A color flow and spectral Doppler study was performed and revealed: Mild aortic regurgitation. Moderate mitral regurgitation. Mitral inflow velocities indicates possible pseudo normalization pattern implying significant left ventricular diastolic dysfunction. Trace tricuspid regurgitation. Tricuspid systolic velocities suggests peak right ventricular systolic pressure of 32mmHg Pulmonic regurgitation present.
== END 2017-11-29 11:00 | disposition home or self-care (01) | DRG 280 ==
LOC: EMR 21:24 → SDSOVERFLO 22:48 → EDBEDREQ 11-23 15:10 → 2W 11-23 15:26
PROC: 5A1D70Z Performance of Urinary Filtration, Intermittent, Less than 6 Hours Per Day (ICD-10-PCS; principal; 2017-11-23)
DX: I21.4 Non-ST elevation (NSTEMI) myocardial infarction (principal); J96.01 Acute respiratory failure with hypoxia; I50.33 Acute on chronic diastolic (congestive) heart failure; N18.6 End stage renal disease; I13.2 Hypertensive heart and chronic kidney disease with heart failure and with stage 5 chronic kidney disease, or end stage renal disease; M48.56XA Collapsed vertebra, not elsewhere classified, lumbar region, initial encounter for fracture; Z99.2 Dependence on renal dialysis; E87.5 Hyperkalemia; Z95.0 Presence of cardiac pacemaker; E11.65 Type 2 diabetes mellitus with hyperglycemia; D64.9 Anemia, unspecified
CPT/HCPCS: 36415; 71045; 80053; 80061; 81003; 82550; 82553; 82607; 82728; 82746; 82977; 83036; 83540; 83550; 83735; 83880; 84100; 84443; 84484; 84550; 85025; 85610; 85730; 86140; 87081; 93005; 93306; 93970; 94640; 94660; 94664; 94760